=== PATIENT | female | born 1935 | race Caucasian/White ===

== ENCOUNTER 2019-11-05 09:13 | Emergency (ER) | payer MEDICARE, OTHER, SELFPAY ==
--- NOTE | ~2019-11-05 | CT_ITS ---
EXAMINATION: CT abdomen pelvis w con DATE: 11/05/2019 10:38 INDICATION: Abdominal pain. TECHNIQUE: Computed tomography (CT) of the abdomen and pelvis was performed with 100 mL Omnipaque 350 intravenous contrast. Automated exposure control and iterative reconstruction technique were employe d. The dose-length product was 158.80 mGy-cm. COMPARISON: None. FINDINGS: The visualized portions of the lung bases demonstrate mucous plugging in right lower lobe. There are airspace and groundglass opacities in basilar right lower lobe, consistent with atelectasis versus pneumonia. There is mild atelectasis in left lower lobe. No pleural effusion. The liver, gall bladder, spleen, and adrenal glands are normal. There is a 4 mm cystic lesion in the body of the panc reas, likely benign. Right kidney is normal. There are cysts in left kidney measuring up to 3 mm. The re is diverticulosis of the colon without evidence of diverticulitis. 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 There are no pathologically enlarged lymph nodes. There is no free intrape ritoneal fluid. There is mild lumbar spondylosis. IMPRESSION: 1. Mucous plugging in right lung lower lobe with airspace and groundglass opacities in basilar right lower lobe, consistent with atelectasis versus pneumonia. Reviewed, dictated and finalized at location A. IMPRESSION: 1. Mucous plugging in right lung lower lobe with airspace and groundglass opaci ties in basilar right lower lobe, consistent with atelectasis versus pneumonia.
[2019-11-05 09:13] VITALS: BP 127/54; PULSE 67; RESP 18; TEMP 36.8; O2SAT 96
[2019-11-05 09:55] LABS: Basophils Absolute Auto 0.1 K/mm3 (0.0-0.1); Basophils Percent Auto 0.8 % (0.2-1.2); Eosinophils Absolute Auto 0.1 K/mm3 (0-0.3); Eosinophils Percent Auto 1.6 % (0-4.4); Hematocrit 35.9 % (42.0-52.0); Hemoglobin 11.6 g/dL (14.0-18.0); Immature Granulocyte Absolute 0.03 K/mm3 (0.00-0.031); Immature Granulocyte Percent A 0.4 % (0-0.5); Lymphocytes Absolute Auto 1.19 K/mm3 (0.9-3.2); Lymphocytes Percent Auto 15.9 % (18.3-44.2); Mean Corpuscular HGB Conc 32.3 g/dl (32-36); Mean Corpuscular Hemoglobin 30.5 pg (26-34); Mean Corpuscular Volume 94.5 fl (80-100); Mean Platelet Volume 8.9 fl (7.4-10.4); Monocytes Absolute Auto 0.7 K/mm3 (0.1-0.6); Monocytes Percent Auto 8.8 % (2.6-8.5); Neutrophils Absolute Auto 5.4 K/mm3 (1.3-6.7); Neutrophils Percent Auto 72.5 % (45.5-73.1); Platelet Count Result 450 k/mm3 (150-375); Red Cell Distribution Width 13.8 % (11.5-14.5); White Blood Count 7.5 K/mm3 (4.5-10.0)
[2019-11-05] MEDS: BELLADONNA ALK/PHENOB ELIX 10 ML, MAG HYDROX/ALUMINUM HYD/SIMETH 30 ML, LIDOCAINE HCL 2... PO (10:07)
[2019-11-05 10:08] LABS: Alanine Aminotransferase 15 U/L (4-50); Albumin Level 3.5 g/dL (3.5-5.1); Alkaline Phosphatase 114 U/L (38-126); Aspartate Amino Transferase 38 U/L (17-59); Bilirubin,Total 0.4 mg/dL (0.2-1.3); Blood Urea Nitrogen 9 mg/dL (9-20); Calcium 9.1 mg/dL (8.4-10.2); Carbon Dioxide 28 mmol/L (22-30); Chloride 102 mmol/L (98-107); Estimated Glomerular Filt Rate > 60; Glucose 103 mg/dL (75-110); Lipase 76 U/L (23-300); Potassium 4.7 mmol/L (3.4-5.0); Sodium 137 mmol/L (137-145)
--- NOTE | 2019-11-05 10:23 | ED.ABDPAIN ---
HPI - Abdominal Pain General Chief Complaint: Abdominal Pain Stated Complaint: abd pain Time Seen by Provider: 11/05/19 09:23 Source: patient Mode of arrival: EMS Limitations: no limitations History of Present Illness HPI narrative: Patient presents with chief complaint of epigastric discomfort over the past 2 days. Patient is a the pain feels like a cramping. She denies any vomiting or diarrhea. Patient denies any inability to move her bowels. Patient states that she had cold-like symptoms a week ago and has been taking [place] plus for her symptoms. Patient states that her symptoms have all resolved. She reports the day before yesterday she was tested for influenza and xray for pneumonia and was told that all the testing was negative. She states she was also told she did not have coronavirus. Patient denies recent travel or known exposure. Patient has not taken anything to alleviate her abdominal discomfort. Patient any chest pain or shortness of breath. Patient denies the discomfort radiating into her back. Related Data Home Medications Medication Instructions Recorded Confirmed amlodipine 2.5 mg PO DAILY 11/05/19 levothyroxine 25 mcg PO DAILY 11/05/19 Allergies Allergy/AdvReac Type Severity Reaction Status Date / Time No Known Allergies Allergy Verified 11/05/19 09:17 Review of Systems Review of Systems: Narrative: CONSTITUTIONAL: Denies fever, chills, or sweats. EYES: Denies visual changes, redness, or discharge. ENT: Denies rhinorrhea, congestion, sore throat, or otalgia. CARDIOVASCULAR: Denies chest pain, palpitations, or edema. RESPIRATORY: Denies cough or dyspnea. GASTROINTESTINAL: Reports epigastric abdominal pain, denies nausea, vomiting, or diarrhea. GENITOURINARY: Denies dysuria or hematuria. SKIN: Denies rash or itching. MUSCULOSKELETAL: Denies back pain, joint pain, or myalgia. NEUROLOGIC: Denies headache, numbness, dizziness, or weakness. PSYCHIATRIC: Denies anxiety or depression. PMFSH Social History Social History Gender identity (if verbalized by the patient): Female Exam Narrative: Exam Narrative: GENERAL: Well-appearing, well-nourished, and in no acute distress. HEAD: Normocephalic, atraumatic. EYES: PERRLA and EOMI. ENT: Nares clear, no rhinorrhea or epistaxis. Mucous membranes moist. Oropharynx without tonsillar hypertrophy exudate or other lesions. Bilateral TMs pearly moffett nonbulging NECK: Supple. No adenopathy or masses. CHEST: Clear to auscultation. No respiratory distress. No wheezes rales or rhonchi HEART: Regular rate and rhythm. No murmur heard. Normal peripheral pulses. ABDOMEN: Soft, tender with palpation of epigastric area, nondistended, normal active bowel sounds. SKIN: Warm, dry, no rash. NEURO: No focal deficits. Alert and oriented x3. PSYCH: Normal mood and affect. Course Course Emergency Course: Patient requesting food to eat. Informed patient that we need to wait until her results to return before eating. It is a good sign that the patient has interest in eat, despite her concern for her abdominal pain. Vital Signs Vital signs: Vital Signs Temperature 98.3 F 11/05/19 09:13 Pulse Rate 67 11/05/19 09:13 Respiratory Rate 18 11/05/19 09:13 Blood Pressure 127/54 L 11/05/19 09:13 Pulse Oximetry 96 11/05/19 09:13 Temperature 98.3 F 11/05/19 09:13 Pulse Rate 67 11/05/19 09:13 Respiratory Rate 18 11/05/19 09:13 Blood Pressure 127/54 L 11/05/19 09:13 Pulse Oximetry 96 11/05/19 09:13 MDM - Abdominal Pain MDM Narrative Medical decision making narrative: Patient's blood work and CT scan are negative. Patient is instructed to stop use of [place] plus as it may be causing irritation to her stomach lining. Instructed patient to follow-up with her primary care in 2 to 3 days for reevaluation. Patient denies any nausea. Patient denies any a.m. has not had any vomiting or diarrhea since she has been in the emergency depa
--- NOTE | 2019-11-05 10:28 | ECG_ITS ---
Measurements Intervals [place] Rate: 70 P: 54 NH: 176 QRS: 19 QRSD: 68 T: 60 QT: 363 QTc: 392 Interpretive Statements SINUS RHYTHM CANNOT RULE OUT SEPTAL INFARCT, AGE INDETERMINATE BORDERLINE T WAVE ABNORMALITY- DIFFUSE LEADS BASELINE ARTIFACT- I, II, III, AVR, AVL ABNORMAL ECG Electronically Signed On 11-05-2019 11:45:02 CDT by Isidro Kearns D.O.
[2019-11-05 10:33] LABS: Add Urine Microscopic? YES; Appearance Urine Clear (Clear); Bilirubin Urine Negative (Negative); Blood Urine Negative (Negative); Color Urine Yellow (Yellow); Glucose Urine UA Negative (Negative); Ketones Urine Negative (Negative); Leukocyte Esterase Ur Trace LEU/UL (Negative); Nitrate Urine Negative (Negative); Protein Urine Negative (Negative); Specific Grav Ur 1.015 (1.001-1.035); Urobilinogen Urine 0.2 mg/dL (<2.0)
[2019-11-05 10:41] LABS: Bacteria Urine Trace /hpf; Mucus Urine Rare /lpf; RBC Urine 0-2 /hpf (0-2); Squamous Epithelial Cell Urine Many /hpf (Few); Transitional Epi Cells Urine Rare /hpf (None Seen)
[2019-11-05 11:59] VITALS: BP 136/54; PULSE 73; RESP 19; O2SAT 98
== END 2019-11-05 12:01 | disposition home or self-care (01) ==
PROVIDERS: Emergency Provider Emergency Medicine
DX: R10.13 Epigastric pain (principal); R94.31 Abnormal electrocardiogram [ECG] [EKG]; R91.8 Other nonspecific abnormal finding of lung field
CPT/HCPCS: 36415; 74177; 80053; 81001; 83690; 85025; 93005; 99284; A9270; Q9967

== ENCOUNTER 2020-02-25 06:20 | Observation (INO) | payer MEDICARE, OTHER, SELFPAY ==
[2020-02-25] VITALS (20 sets, daily range): BP systolic 101–128; BP diastolic 46–69; PULSE 45–67; RESP 12–18; TEMP 36–36.7; O2SAT 93–100; BMI 18.4
--- NOTE | ~2020-02-25 | CT_ITS ---
EXAMINATION: CT cervical spine wo con DATE: 02/25/2020 06:52 INDICATION: Head injury post fall TECHNIQUE: Computed tomography (CT) of the cervical spine was performed without intravenous contrast. Automated exposure control and iterative reconstruction technique were employed. The dose-length pro duct was 101.39 mGy-cm. COMPARISON: None FINDINGS: Alignment is normal. Diffuse osteopenia. Chronic appearing mild vertebral body height loss at C4 and C5. No acute fracture. Moderate disc height loss at C4-C5, C5-C6 and C6-C7. Mild disc height loss at the remaining cervical levels as well as at T2-T3. There is severe uncovertebral osteoarthritis along with disc osteophyte complexes at multiple levels resulting in probable mild to moderate central can al stenosis most prominent at C4-C5 and C5-C6 and moderate neural foraminal stenosis on both the left and right at C3-C4 through C7-T1. Severe facet osteoarthritis on the left at C3-C4 and mild to moder ate the remainder of the cervical spine on both the left and right. Cervical soft tissues are unremar kable. No parenchymal scarring with calcified plaques at both apices of the lungs. IMPRESSION: 1. Osteopenia with chronic mild vertebral body height loss at C4 and C5. No acute osseous abnormality . 2. Moderate cervical spondylosis. Reviewed, dictated and finalized at location A. IMPRESSION: 1. Osteopenia with chronic mild vertebral body height loss at C4 and C5. No acu te osseous abnormality. 2. Moderate cervical spondylosis.
--- NOTE | ~2020-02-25 | XR_ITS ---
EXAMINATION: XR shoulder LT min 2V, XR humerus LT DATE: 02/25/2020 07:10 INDICATION: Left shoulder and arm pain post fall TECHNIQUE: 1. AP internally and externally rotated, AP oblique externally rotated, axillary and transscapular Y views of the affected shoulder were obtained. 2. AP and lateral views of the left humerus were obtained. COMPARISON: None FINDINGS: Diffuse osteopenia which decreases sensitivity for nondisplaced fracture. Minimally displaced likely intra-articular fracture at the lateral head of the left clavicle. There appears to be a step-off rafael ng the anterior cortex of the ulna just distal to the coronoid process is also suspicious for a minim ally displaced impaction fracture. Alignment of the bones is otherwise normal. Mild osteoarthritis at the left shoulder and elbow. Peripheral IV at the left antecubital fossa. IMPRESSION: 1. Minimally displaced intra-articular fracture at the lateral head of the left clavicle. 2. Suspicion for minimally displaced fracture at the proximal left ulna. Recommend dedicated left elb ow radiographs for more definitive determination. Reviewed, dictated and finalized at location A. IMPRESSION: 1. Minimally displaced intra-articular fracture at the lateral head of the left clavicle. 2. Suspicion for minimally displaced fracture at the proximal left ulna. Recomm end dedicated left elbow radiographs for more definitive determination.
--- NOTE | ~2020-02-25 | XR_ITS ---
EXAMINATION: XR chest 2V DATE: 02/25/2020 07:10 INDICATION: Fall with shoulder pain TECHNIQUE: frontal view of the chest was obtained. COMPARISON: Chest radiograph dated 08/20/2011 FINDINGS: Biapical pleural-parenchymal scarring. Hyperexpansion of lungs with new flattening of the diaphragm a nd blunting at the costo phrenic angles consistent with small bilateral pleural effusions and associa prakash basilar atelectasis. No pneumothorax. Borderline heart size accounting for AP technique. Atherosc lerotic aorta. Osteopenia. IMPRESSION: 1. Small bilateral pleural effusions with basilar atelectasis. 2. Hyperexpansion of lungs which could be related to age or COPD. Reviewed, dictated and finalized at location A.
--- NOTE | ~2020-02-25 | CT_ITS ---
EXAMINATION: CT brain wo con DATE: 02/25/2020 06:52 INDICATION: Fall with head injury TECHNIQUE: Computed tomography (CT) of the head was performed without intravenous contrast. Sagittal and coronal reconstructions were performed. The mA was adjusted according to patient size. Iterative reconstruction technique was employed. The dose-length product was 605.33 mGy-cm. COMPARISON: None FINDINGS: Left frontal scalp hematoma. No fracture. No acute intracranial hemorrhage, acute infarction or abnor mal extra axial fluid collection. There is moderate scattered white matter hypoattenuation consistent with chronic small vessel ischemic disease. Ventricles are normal and symmetric. No mass/mass effect . Intracranial calcified cerebral atherosclerosis is noted. The orbits, paranasal sinuses and mastoid air cells are normal. IMPRESSION: 1. No fracture or acute intracranial process. 2. Moderate scattered white matter hypoattenuation consistent with chronic small vessel ischemic dise ase. Reviewed, dictated and finalized at location A. IMPRESSION: 1. No fracture or acute intracranial process. 2. Moderate scattered white matter hypoattenuation consistent with chronic smal l vessel ischemic disease.
--- NOTE | ~2020-02-25 | XR_ITS ---
EXAMINATION: XR elbow LT min 3V DATE: 02/25/2020 08:09 INDICATION: Fall with left arm injury and abnormal appearance to the proximal ulna on prior radiograp hs. TECHNIQUE: Anteroposterior, two oblique and lateral views of the left elbow were obtained. COMPARISON: None. FINDINGS: Alignment is normal. Osteopenia. The cortical irregularity along the anterior margin of the proximal ulna has a chronic appearance with no linear lucency or discontinuous or sharply angulated cortex to suggest acute fracture. No fracture or joint effusion. Mild osteoarthritis at the left elbow. Periphe ral IV at the left antecubital fossa. Soft tissues are unremarkable. IMPRESSION: 1. No acute osseous abnormality. The irregular cortical contour previously noted at the proximal ulna has a chronic appearance. Reviewed, dictated and finalized at location A. IMPRESSION: 1. No acute osseous abnormality. The irregular cortical contour previously note d at the proximal ulna has a chronic appearance.
--- NOTE | 2020-02-25 06:20 | ED.FALL ---
HPI - Fall General Chief Complaint: Fall <Orly Tony MD - Last Filed: 02/25/20 07:34> Stated Complaint: fall <Orly Tony MD - Last Filed: 02/25/20 07:34> Time Seen by Provider: 02/25/20 08:35 <Orly Tony MD - Last Filed: 02/25/20 07:34> Source: patient and EMS <Orly Tony MD - Last Filed: 02/25/20 07:34> Mode of arrival: EMS <Orly Tony MD - Last Filed: 02/25/20 07:34> Limitations: no limitations <Orly Tony MD - Last Filed: 02/25/20 07:34> History of Present Illness HPI Narrative: Patient is an 84-year-old female who presents for evaluation of a ground-level fall. Patient states that she was getting up from bed when she suddenly began to feel dizzy, fell and hit her head on the side of a stair. Patient denies loss of consciousness. She reports headache pain and left-sided shoulder pain. She denies hip pain, knee pain or ankle pain. No vision changes, nausea or vomiting. Headache is dull, aching in nature, no radiation to the neck. <Orly Tony MD - Last Filed: 02/25/20 07:34> Related Data Home Medications: Home Medications Medication Instructions Recorded Confirmed amlodipine 2.5 mg PO DAILY 11/05/19 02/25/20 levothyroxine 25 mcg PO DAILY 02/25/20 02/25/20 <Orly Tony MD - Last Filed: 02/25/20 07:34> Allergies/Adverse Reactions: Allergies Allergy/AdvReac Type Severity Reaction Status Date / Time No Known Allergies Allergy Verified 02/25/20 06:41 <Orly Tony MD - Last Filed: 02/25/20 07:34> Review of Systems Review of Systems: Narrative: CONSTITUTIONAL: Denies fever CARDIOVASCULAR: Denies chest pain RESPIRATORY: Denies cough or dyspnea. GASTROINTESTINAL: Denies abdominal pain SKIN: Denies rash MUSCULOSKELETAL: Denies back pain NEUROLOGIC: Reports headache <Orly Tony MD - Last Filed: 02/25/20 07:34> [facility] Past Medical History Medical History: Medical History (Updated 02/25/20 @ 18:15 by Roxanna Turk MD) Hypertension Hypothyroid <Orly Tony MD - Last Filed: 02/25/20 07:34> Social History Social History: Social History (System 11/19/19 @ 16:18 by Radha Shah) Years smoked: 60 Smoking status: Current every day smoker Tobacco type: cigarettes Alcohol intake: former Substance use type: does not use Gender identity (if verbalized by the patient): Female Spiritual care concerns: No <Orly Tony MD - Last Filed: 02/25/20 07:34> Exam Narrative: Exam Narrative: GENERAL: Awake, alert, conversant HEAD: Left sided forehead hematoma, non-boggy, no palpable depression EYES: PERRLA and EOMI. ENT: Nares clear, no rhinorrhea or epistaxis. Mucous membranes moist. NECK: Supple. Midline cervical spinal tenderness. CHEST: No respiratory distress, breathing even and non labored HEART: Regular rate, sinus rhythm ABDOMEN:Non distended, non tender Pelvis: Stable to anterior lateral compression, no limb length discrepancy, no pain with internal or external rotation of the bilateral lower extremities EXTREMITIES: Decreased range of motion in the left shoulder, mild ecchymosis, no deformity or squaring off of the shoulder. Intact sensation median, ulnar, radial nerve distribution. Full flexion and extension of the left elbow and left wrist without pain or limitation. Radial pulses 2+. SKIN: Warm, dry, no rash. NEURO:No focal deficits. Alert and oriented x3 <Orly Tony MD - Last Filed: 02/25/20 07:34> Course Reevaluation(s) Reevaluation #1: Patient states this morning she got off the couch and she fell and hit walk due to dizziness. In the ER , we attempted to ambulated and she was unable due to severe dizziness. I discussed that she will be admitted for further evaluation of her dizziness. <Roxanna Turk MD - Last Filed: 02/25/20 18:15> Date: 02/25/20 <Roxanna Turk MD - Last Filed: 02/25/20 18:15> Time:
[2020-02-25] MEDS: SODIUM CHLORIDE 0.9% IV 1,000 ML 999 ML IV CONT (06:34)
[2020-02-25] MEDS: ONDANSETRON INJ 4 MG/2 ML VIAL IV PUSH (06:36)
[2020-02-25] MEDS: MORPHINE SULFATE 4 MG/ML INJ IV PUSH (06:36)
[2020-02-25 06:37] LABS: Basophils Absolute Auto 0.1 K/mm3 (0.0-0.1); Basophils Percent Auto 1.4 % (0.2-1.2); Eosinophils Absolute Auto 0.2 K/mm3 (0-0.3); Eosinophils Percent Auto 2.8 % (0-4.4); Hematocrit 35.2 % (37.0-47.0); Hemoglobin 12.1 g/dL (12.0-15.0); Immature Granulocyte Absolute 0.06 K/mm3 (0.00-0.031); Immature Granulocyte Percent A 1.1 % (0-0.5); Lymphocytes Absolute Auto 1.77 K/mm3 (0.9-3.2); Lymphocytes Percent Auto 31.4 % (18.3-44.2); Mean Corpuscular HGB Conc 34.4 g/dl (32-36); Mean Corpuscular Volume 95.9 fl (80-100); Mean Platelet Volume 9.1 fl (7.4-10.4); Monocytes Absolute Auto 0.5 K/mm3 (0.1-0.6); Monocytes Percent Auto 8.5 % (2.6-8.5); Neutrophils Absolute Auto 3.1 K/mm3 (1.3-6.7); Neutrophils Percent Auto 54.8 % (45.5-73.1); Platelet Count Result 185 k/mm3 (150-375); Red Blood Count 3.67 M/mm3 (4.2-5.4); Red Cell Distribution Width 15.4 % (11.5-14.5); White Blood Count 5.6 K/mm3 (4.5-10.0)
[2020-02-25 06:46] LABS: INR 1.1; Prothrombin Time 13.5 Seconds (11.1-14.7)
[2020-02-25 06:47] LABS: Partial Thromboplastin Time 38.2 SECONDS (22.3-36.8)
[2020-02-25 06:49] LABS: Blood Urea Nitrogen 14 mg/dL (7-17); Calcium 8.6 mg/dL (8.4-10.2); Carbon Dioxide 23 mmol/L (22-30); Chloride 108 mmol/L (98-107); Estimated CRCL calculation 23 ml/min; Estimated Glomerular Filt Rate 53; Glucose 107 mg/dL (65-105); Potassium 3.7 mmol/L (3.4-5.0); Sodium 137 mmol/L (137-145)
--- NOTE | 2020-02-25 09:40 | PC.NURSE ---
attempted to ambulate pt. pt c/o severe dizziness. will take a step then reach out arm to grab nearest object to steady herself. pt stating blayne im not weak like this .
[2020-02-25] MEDS: MECLIZINE HCL 25 MG TABLET PO (09:56)
[2020-02-25] MEDS: SODIUM CHLORIDE 0.9% IV 500 ML 999 ML IV CONT (09:57)
--- NOTE | 2020-02-25 10:49 | ECG_ITS ---
Measurements Intervals [place] Rate: 56 P: 67 HI: 227 QRS: -14 QRSD: 72 T: 60 QT: 411 QTc: 397 Interpretive Statements SINUS BRADYCARDIA WITH FIRST DEGREE AV BLOCK LOW QRS VOLTAGE- DIFFUSE LEADS BORDERLINE T WAVE ABNORMALITY- DIFFUSE LEADS BASELINE WANDER- AVR, AVL, AVF ABNORMAL ECG Electronically Signed On 02-25-2020 12:09:50 CDT by Isidro Kearns D.O.
--- NOTE | 2020-02-25 12:55 | PC.NURSE ---
This patient, Kayode Arroyo, was admitted to Medical Room 346-01. Patient/family oriented to hospital policies and general routines including ID bracelet, bed and alarms, visiting hours, pain management, procedures, bathroom and other care routines, personal items, smoking policy, room service/diet, and visiting hours. Valuables list has been completed. Information on how to activate the Rapid Response Team has been discussed. Patient/Family are encouraged to report perceived risks to care and to ask questions if they do not understand what they are told or what they should do.
--- NOTE | 2020-02-25 20:57 | PM.IMHP ---
H&P: HPI History of Present Illness Chief complaint: dizziness/left clavicle fracture Narrative: Kayode Arroyo is a 84 year old female the patient stated that she has been feeling dizzy over the last couple days. She presented to the emergency room after she sustained a ground level fall. The patient stated that she felt dizzy she felt like maybe she got up too fast and she fell over and hit her head on the wall. I asked her about the stair step and she stated that she did not hit her head on the stairs but it was the wall rather than the steps. She denied any loss of consciousness. The patient was complaining of some left shoulder pain and has a large hematoma to left side of her face. The patient denied any nausea or vomiting. She did complain of a headache and left shoulder pain. Patient's heart rate has been in the 40s as well. The patient stated she has been feeling dizzy for the last couple days. Her EKG was read as heart rate in the 70s. Sinus rhythm cannot rule out septic infarction age indeterminate borderline T-wave abnormality diffuse leads baseline artifact 1-3 AVR and aVL. Was read as no fracture or acute intracranial process. Moderate scattered white matter hypoattenuation consistent with chronic small-vessel ischemic disease. Chest x-ray was read as small bilateral pleural effusions with bibasilar atelectasis. Hyperexpansion of lungs which could be related to age or COPD. The patient tells me she has no history of COPD. X-ray was read as minimally displaced intra-articular fracture of the lateral head of the left clavicle. Suspicion for minimally displaced fracture of the proximal left ulna. Orthopedics has been consulted. Tylenol and placed in a left arm sling. She was also given IV fluids and morphine and Antivert. Patient is being admitted to medical floor for bradycardia dizziness and left clavicle fracture possible left ulnar fracture. Date of service 02/25/2020 Review of Systems Review of Systems: All systems reviewed & are unremarkable except as noted in HPI and below Constitutional: Constitutional: Reports as per HPI and Reports no additional constitutional complaints Eyes: Eyes: Reports as per HPI and Reports no additional eye complaints ENT: Reports system reviewed and no additional complaints, except as documented and Reports Normal hearing present Cardiovascular: Cardiovascular: Reports no additional cardiovascular complaints Respiratory: Respiratory: Reports no additional respiratory complaints and Reports no additional respiratory complaints Gastrointestinal: Gastrointestinal: Reports as per HPI and Reports no additional gastrointestinal complaints Musculoskeletal: Musculoskeletal: Reports no additional musculoskeletal complaints Integumentary/Breasts: Skin/Breast: Reports system reviewed and no additional complaints, except as docu and Reports as per HPI Neurologic: Reports system reviewed and no additional complaints, except as documented, Reports as per HPI and Reports Normal hearing present Psychiatric: Psychiatric: Reports no additional psychiatric complaints and Reports as per HPI Endocrine: Endocrine: Reports no additional endocrine complaints Hematologic/Lymphatic: Hematologic/Lymphatic: Reports no additional hematologic/lymphatic complaints Allergic/Immunologic: Allergic/Immunologic: Reports no additional allergic/immunologic complaints [facility] Past Medical History Medical History (Updated 02/25/20 @ 21:13 by Ritika Varela NP) Hypertension Hypothyroid Surgical History Surgical History History of appendectomy Family History Family History Mother due to natural causes Father due to natural causes Social History Social History (Updated 02/25/20 @ 21:08 by Ritika Varela NP) Social History: The patient tells me that she lives home alone. She is
[2020-02-25] MEDS: MECLIZINE HCL 6.25 MG TABLET PO (22:47)
[2020-02-25 23:14] LABS: Add Urine Microscopic? YES; Appearance Urine Clear (Clear); Bilirubin Urine Negative (Negative); Blood Urine Negative (Negative); Color Urine Straw (Yellow); Glucose Urine UA Negative (Negative); Ketones Urine Trace mg/dL (Negative); Leukocyte Esterase Ur Negative LEU/UL (NEGATIVE); Mucus Urine Rare /lpf; Nitrate Urine Negative (Negative); Protein Urine Negative (Negative); RBC Urine 0-2 /hpf (0-2); Specific Grav Ur 1.018 (1.001-1.035); Urobilinogen Urine Negative mg/dL (<2.0)
[2020-02-26] VITALS (15 sets, daily range): BP systolic 103–133; BP diastolic 44–59; PULSE 44–79; RESP 12–16; TEMP 36.2–36.6; O2SAT 95–97; BMI 18.4
[2020-02-26] MEDS: LEVOTHYROXINE SODIUM 25 MCG TABLET PO (05:58)
[2020-02-26 06:37] LABS: Basophils Absolute Auto 0.1 K/mm3 (0.0-0.1); Basophils Percent Auto 1.1 % (0.2-1.2); Eosinophils Absolute Auto 0.1 K/mm3 (0-0.3); Eosinophils Percent Auto 2.1 % (0-4.4); Hematocrit 31.3 % (37.0-47.0); Hemoglobin 10.8 g/dL (12.0-15.0); Immature Granulocyte Absolute 0.03 K/mm3 (0.00-0.031); Immature Granulocyte Percent A 0.5 % (0-0.5); Lymphocytes Absolute Auto 1.55 K/mm3 (0.9-3.2); Lymphocytes Percent Auto 27.2 % (18.3-44.2); Mean Corpuscular HGB Conc 34.5 g/dl (32-36); Mean Corpuscular Hemoglobin 32.6 pg (26-34); Mean Corpuscular Volume 94.6 fl (80-100); Mean Platelet Volume 9.6 fl (7.4-10.4); Monocytes Absolute Auto 0.5 K/mm3 (0.1-0.6); Monocytes Percent Auto 9.3 % (2.6-8.5); Neutrophils Absolute Auto 3.4 K/mm3 (1.3-6.7); Neutrophils Percent Auto 59.8 % (45.5-73.1); Platelet Count Result 181 k/mm3 (150-375); Red Blood Count 3.31 M/mm3 (4.2-5.4); Red Cell Distribution Width 15.2 % (11.5-14.5); White Blood Count 5.7 K/mm3 (4.5-10.0)
[2020-02-26 06:51] LABS: Alanine Aminotransferase 12 U/L (4-35); Albumin Level 3.6 g/dL (3.5-5.1); Alkaline Phosphatase 68 U/L (38-126); Aspartate Amino Transferase 51 U/L (14-36); Bilirubin,Total 0.6 mg/dL (0.2-1.3); Blood Urea Nitrogen 10 mg/dL (7-17); Calcium 8.6 mg/dL (8.4-10.2); Carbon Dioxide 26 mmol/L (22-30); Chloride 107 mmol/L (98-107); Estimated CRCL calculation 31 ml/min; Estimated Glomerular Filt Rate 60; Glucose 76 mg/dL (65-105); Magnesium 1.9 mg/dL (1.6-2.3); Sodium 136 mmol/L (137-145)
[2020-02-26 07:50] LABS: Thyroid Stimulating Hormone Reflex > 100.000 uIU/mL (0.465-4.68)
[2020-02-26 08:18] LABS: Free T4 Free Thyroxine Reflex < 0.07 ng/dL (0.78-2.19)
[2020-02-26] MEDS: MECLIZINE HCL 6.25 MG TABLET PO ×3 (09:13→16:54)
--- NOTE | 2020-02-26 12:33 | PM.IMPN ---
Progress Note: A&P Assessment and Plan (1) Fracture of clavicle: Qualifiers: Clavicle location: unspecified part of clavicle Encounter type: initial encounter Fracture alignment: displaced Fracture type: closed Laterality: left Qualified Code(s): S42.002A - Fracture of unspecified part of left clavicle, initial encounter for closed fracture Code(s): S42.009A - Fracture of unspecified part of unspecified clavicle, initial encounter for closed fracture Status: Acute Assessment and Plan: Patient presents after a fall at home; XR shows minimally displaced intra-articular fracture of lateral head of left clavicle. Orthopedic surgery was consulted - appreciate recommendations. L arm in sling. If plans for conservative therapy, may be able to discharge tomorrow. Continue supportive care with sling and Tylenol. Incentive spirometry. (2) Hypothyroid: Qualifiers: Hypothyroidism type: unspecified Qualified Code(s): E03.9 - Hypothyroidism, unspecified Code(s): E03.9 - Hypothyroidism, unspecified Status: Chronic Assessment and Plan: TSH > 100. She admits she has not taken her levothyroxine in a couple months . Discussed the importance of taking her medications as prescribed. Will restart her levothyroxine and increase dose to 50 mcg daily. Will need follow up with PCP. Untreated hypothyroidism is likely contributing to bradycardia and dizziness. (3) Bradycardia: Code(s): R00.1 - Bradycardia, unspecified Status: Acute Assessment and Plan: See above. Untreated hypothyroidism is the most likely cause. Will monitor. (4) Dizziness: Code(s): R42 - Dizziness and giddiness Status: Acute Assessment and Plan: CT brain after fall with no acute findings. Bradycardia may have contributed. Hopeful correcting the thyroid levels will help. Continue meclizine. She reports feeling better today. (5) Hypertension: Qualifiers: Hypertension type: essential hypertension Qualified Code(s): I10 - Essential (primary) hypertension Code(s): I10 - Essential (primary) hypertension Status: Chronic Assessment and Plan: With some blood pressures on the softer side, her home low-dose Norvasc was held. Last 128/55. Will monitor BP and adjust treatment as needed. Subjective Date/time seen: 02/26/20 12:15 Interval history: Ms. Arroyo is an 84yo F admitted with dizziness, left clavicular fracture after a fall at home. She reports feeling okay today, very sore. Her left shoulder is bothering her most. She denies chest pain or shortness of breath. She is tolerating oral intake without nausea or vomiting. Review of Systems Review of Systems: Narrative: Twelve systems were reviewed with pertinent positives and negatives as per HPI. Exam Narrative: Exam Narrative: General: Female sitting up in bedside chair in no acute distress. HEENT: Left forehead ecchymosis and soft tissue swelling, PERRL, EOMI, oral mucosa moist. Cardiovascular: Rate is bradycardic but rhythm is regular. Telemetry review shows sinus bradycardia HR 68 at time of my encounter. Respiratory: Lungs clear to auscultation all hernandez. Non-labored breathing. Abdomen: Soft, non-tender, non-distended, bowel sounds present. Extremities: Peripheral pulses intact. Left upper extremity is neurovascularly intact. L arm in sling. Neuro: No focal neurological deficits. Speech is clear. Objective Data Vital Signs Vital Signs: Last Vital Signs Temp 97.5 F L 02/26/20 14:00 Pulse 58 L 02/26/20 16:00 Resp 16 02/26/20 14:00 BP 128/55 L 02/26/20 14:39 Pulse Ox 97 02/26/20 14:00 Intake/Output Intake/Output: Intake & Output 02/23/20 02/24/20 02/25/20 02/26/20 23:59 23:59 23:59 23:59 Intake Total 1765 290 Out
--- NOTE | 2020-02-26 16:39 | PM.CNOR ---
Assessment and Plan Assessment and plan (1) Fx clavicle, acrom end-closed: Code(s): S42.033A - Displaced fracture of lateral end of unspecified clavicle, initial encounter for closed fracture Status: Acute Assessment and Plan: Nondisplaced fracture of the distal in the clavicle. May be treated conservatively. Sling for comfort. May remove intermittently comfort, hygiene, and exercise. Elbow wrist and hand exercise encouraged. Gentle shoulder motion as tolerated. No lifting over shoulder height. No pushing or pulling. Follow-up x-ray in 4 weeks. Risk of delayed union discussed. Nonunion less likely with this nondisplaced fracture. History of Present Illness HPI Consult date: 02/25/20 Chief complaint: dizziness/left clavicle fracture Narrative: Complains of left shoulder pain. Lateral and superior. Began after a fall. Pain is severe. Relieved with sling. No numbness or associated symptoms. Review of Systems Review of Systems: All systems reviewed & are unremarkable except as noted in HPI and below (hpi) Constitutional: Constitutional: Reports fatigue Comments: dizzyness PMFSH Past Medical History Medical History Hypertension Hypothyroid Surgical History Surgical History History of appendectomy Family History Family History Mother due to natural causes Father due to natural causes Social History Social History Social History: The patient tells me that she lives home alone. She is . She has 1 daughter who is estranged from her. 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 Who lives home alone in an apartment by herself. She states that she is down to 5 or 6 cigarettes a day. She does not use marijuana illicit drugs or alcohol. Years smoked: 60 Smoking status: Current every day smoker Tobacco type: cigarettes Alcohol intake: former Substance use type: does not use Gender identity (if verbalized by the patient): Female Spiritual care concerns: No Meds Home Medications and Allergies Home Medications Medication Instructions Recorded Confirmed Type amlodipine 2.5 mg PO DAILY 11/05/19 02/25/20 History levothyroxine 25 mcg PO DAILY 02/25/20 02/25/20 History Allergies Allergy/AdvReac Type Severity Reaction Status Date / Time No Known Allergies Allergy Verified 02/25/20 06:41 Vital Signs Vital Signs - 24 hr 02/25/20 20:00 02/25/20 20:21 02/26/20 00:00 Temperature 36.3 C L Pulse Rate 45 L 50 L 44 L Respiratory Rate 12 Blood Pressure 118/49 L Pulse Oximetry 97 02/26/20 01:09 02/26/20 01:10 02/26/20 01:11 Temperature 36.6 C Pulse Rate 52 L Respiratory Rate 14 Blood Pressure 116/44 L 125/59 L 127/54 L Pulse Oximetry 96 02/26/20 04:23 02/26/20 04:45 02/26/20 08:00 Temperature 36.2 C L Pulse Rate 48 L 55 L 55 L Respiratory Rate 12 Blood Pressure 103/50 L 120/52 L Pulse Oximetry 95 02/26/20 12:00 02/26/20 14:00 02/26/20 14:39 Temperature 36.4 C L Pulse Rate 68 58 L Respiratory Rate 16 Blood Pressure 122/48 L 128/55 L Pulse Oximetry 97 02/26/20 16:00 Temperature Pulse Rate 58 L Respiratory Rate Blood Pressure Pulse Oximetry Exam Const: General: uncomfortable HENMT: Other: Ecchymosis at the temporal and frontal area of the skull and face. Eyes: General: appearance normal, both eyes and all related structures Neck: Neck: supple Extrem: Other: Pleasant. Uncomfortable. Alert oriented x3. Left shoulder number will deformity. Exquisite tenderness at the distal clavicle. Gentle glenohumeral motion well tolerated. No crepitus or deformity. The foot muscle intact.
[2020-02-27] VITALS (11 sets, daily range): BP systolic 108–142; BP diastolic 47–68; PULSE 52–73; RESP 12–16; TEMP 36.1–36.8; O2SAT 92–98
[2020-02-27] MEDS: LEVOTHYROXINE SODIUM 50 MCG TABLET PO (06:09)
[2020-02-27] MEDS: MECLIZINE HCL 6.25 MG TABLET PO ×3 (08:18→16:58)
--- NOTE | 2020-02-27 13:00 | PM.IMPN ---
Subjective Date/time seen: 02/27/20 1215 Objective Data Vital Signs Vital Signs: Vital Signs - 24 hr 02/26/20 14:00 02/26/20 14:39 02/26/20 16:00 Temperature 97.5 F L Pulse Rate 58 L 58 L Respiratory Rate 16 Blood Pressure 122/48 L 128/55 L Pulse Oximetry 97 02/26/20 20:00 02/26/20 22:18 02/26/20 22:23 Temperature 97.3 F L Pulse Rate 53 L 58 L 65 Respiratory Rate 14 Blood Pressure 132/59 L 120/54 L Pulse Oximetry 95 97 02/26/20 22:24 02/27/20 00:15 02/27/20 04:12 Temperature Pulse Rate 79 53 L 52 L Respiratory Rate Blood Pressure 133/57 L Pulse Oximetry 96 02/27/20 05:36 02/27/20 08:00 02/27/20 09:15 Temperature 97.2 F L Pulse Rate 55 L 73 Respiratory Rate 16 Blood Pressure 118/51 L 142/63 H Pulse Oximetry 96 02/27/20 12:00 Temperature Pulse Rate 66 Respiratory Rate Blood Pressure Pulse Oximetry Intake/Output Intake/Output: Intake & Output 02/24/20 02/25/20 02/26/20 02/27/20 23:59 23:59 23:59 23:59 Intake Total 1765 610 580 Output Total 200 700 Balance 1565 -90 580 Meds/Results Medications: Active Medications Generic Name Dose Route Start Last Admin Trade Name Freq PRN Reason Stop Dose Admin Acetaminophen 1,000 mg 02/26/20 16:38 Tylenol Tablet PO Q6H PRN mild Pain or Fever Hydrocodone Bitart/Acetaminophen 1 tab 02/25/20 20:49 [place] 5-325 Mg PO Q4H PRN Pain Rated 4-6 Amlodipine Besylate 2.5 mg 02/26/20 09:00 Norvasc PO DAILY MIREYA Levalbuterol HCl 2 puff 02/25/20 21:03 Xopenex Hfa INHALATION Q6HRT PRN Shortness Of Breath Levothyroxine Sodium 50 mcg 02/27/20 06:30 02/27/20 06:09 Synthroid PO 50 mcg DAILY@0630 MIREYA Administration Meclizine HCl 6.25 mg 02/25/20 21:10 07/04/20 12:20 Antivert PO 6.25 mg TID MIREYA Administration Radiology Results: ITS Impressions Head CT 02/25/20 07:13 IMPRESSION: 1. No fracture or acute intracranial process. 2. Moderate scattered white matter hypoattenuation consistent with chronic small vessel ischemic disease. Chest X-Ray 02/25/20 07:17 IMPRESSION: 1. Small bilateral pleural effusions with basilar atelectasis. 2. Hyperexpansion of lungs which could be related to age or COPD. Humerus X-Ray 02/25/20 07:20 IMPRESSION: 1. Minimally displaced intra-articular fracture at the lateral head of the left clavicle. 2. Suspicion for minimally displaced fracture at the proximal left ulna. Recommend dedicated left elbow radiographs for more definitive determination. Shoulder X-Ray 02/25/20 07:20 IMPRESSION: 1. Minimally displaced intra-articular fracture at the lateral head of the left clavicle. 2. Suspicion for minimally displaced fracture at the proximal left ulna. Recommend dedicated left elbow radiographs for more definitive determination. Cervical Spine CT 02/25/20 07:27 IMPRESSION: 1. Osteopenia with chronic mild vertebral body height loss at C4 and C5. No acute osseous abnormality. 2. Moderate cervical spondylosis. Elbow X-Ray 02/25/20 08:12 IMPRESSION: 1. No acute osseous abnormality. The irregular cortical contour previously noted at the proximal ulna has a chronic appearance. Quality VTE Prophylaxis VTE prophylaxis: mechanical ordered
--- NOTE | 2020-02-27 14:49 | PM.DS ---
DS: Admitting Diagnosis Admitting Diagnosis Admitting Diagnosis: Bradycardia, unspecified DS: Summary Time Spent with Patient Time attestation: Total time spent providing and/or coordinating discharge services: Discharge Plan Discharge Attending physician on discharge: Jerica Shoemaker Consulting providers: Deshaun Duncan Discharging Clinician: Roxi Cadet Anticipated Discharge Date/Time: 02/27/20 13:32 Patient Disposition: SNF Activity: as tolerated and other - see discharge instructions Diet: as tolerated Discharge Instructions: To be seen by custodial provider within 1 week. It is very important to continue taking your thyroid medicine as prescribed. It is felt that your dizziness and slow heart rate was a result of not taking your thyroid medication. Your blood pressure medicine, amlodipine, has not been given to you at the hospital because your blood pressure has been low. Hold off on taking this medication until you see your primary care provider in follow up. Orthopedics: Patient may remove the sling as needed for comfort. Gentle activity below shoulder height is allow. Encourage elbow wrist and hand range of motion. Call Dr Duncan's office at to make a follow up appointment for 3 to 4 weeks from now. Patient Instructions: How to Stop Smoking (GEN), Clavicle Fracture (DC), Cigarette Smoking and Your Health (GEN), How to Use a Sling (DC) Stand Alone Forms: General Discharge Information Follow-up/Referrals: Deshaun Duncan MD [Physician] - Call for Appointment (Call Dr Duncan's office to schedule a follow up appointment in 3 to 4 weeks.) Discharge Medications: New levothyroxine [Synthroid] 50 mcg Tablet 50 mcg PO DAILY@0630 30 Days Qty: 30 RF: 0 meclizine 12.5 mg tablet 12.5 mg PO TID PRN (Reason: dizziness) Qty: 20 RF: 0 Held amlodipine 2.5 mg Tablet 2.5 mg PO DAILY RF: 0 Hold Instructions: Hold until follow up with PCP. Not given in hospital due to hypotension. Discontinued levothyroxine 25 mcg Tablet 25 mcg PO DAILY RF: 0 Other Ambulatory Orders: XR clavicle LT (Routine) Timeframe: 4 Weeks Location: Determined by Patient Ordered By: Roxi Cdaet Date of admission: 02/25/20 11:59 Primary Care Provider: [facility], Admitting Provider: Shad Hills Attending physician on admission: Roxi Cadet Condition: Stable Quality VTE Prophylaxis VTE prophylaxis: mechanical ordered
--- NOTE | 2020-02-27 15:59 | PM.IMPN ---
Progress Note: A&P Assessment and Plan (1) Fracture of clavicle: Qualifiers: Clavicle location: unspecified part of clavicle Encounter type: initial encounter Fracture alignment: displaced Fracture type: closed Laterality: left Qualified Code(s): S42.002A - Fracture of unspecified part of left clavicle, initial encounter for closed fracture Code(s): S42.009A - Fracture of unspecified part of unspecified clavicle, initial encounter for closed fracture Status: Acute Assessment and Plan: Patient presents after a fall at home; XR shows minimally displaced intra-articular fracture of lateral head of left clavicle. Orthopedic surgery was consulted - appreciate recommendations. L arm in sling. Plans for conservative management. Follow up with Dr Duncan in 3 to 4 weeks. Continue supportive care with sling and Tylenol. Incentive spirometry. Discharge planning to [facility] who are not able to take the patient until tomorrow. Discharge tomorrow. (2) Hypothyroid: Qualifiers: Hypothyroidism type: unspecified Qualified Code(s): E03.9 - Hypothyroidism, unspecified Code(s): E03.9 - Hypothyroidism, unspecified Status: Chronic Assessment and Plan: TSH > 100. She admits she has not taken her levothyroxine in a couple months . Discussed the importance of taking her medications as prescribed. Will restart her levothyroxine and increase dose to 50 mcg daily. Will need follow up with PCP. Untreated hypothyroidism is likely contributing to bradycardia and dizziness. (3) Bradycardia: Code(s): R00.1 - Bradycardia, unspecified Status: Acute Assessment and Plan: See above. Untreated hypothyroidism is the most likely cause. Will monitor. (4) Dizziness: Code(s): R42 - Dizziness and giddiness Status: Acute Assessment and Plan: CT brain after fall with no acute findings. Bradycardia may have contributed. Hopeful correcting the thyroid levels will help. Continue meclizine. She reports feeling better today. (5) Hypertension: Qualifiers: Hypertension type: essential hypertension Qualified Code(s): I10 - Essential (primary) hypertension Code(s): I10 - Essential (primary) hypertension Status: Chronic Assessment and Plan: Will add back norvasc. Will monitor BP and adjust treatment as needed. Subjective Date/time seen: 02/27/20 1245 Interval history: Ms. Arroyo is an 84yo F admitted with dizziness, left clavicular fracture after a fall at home. She is feeling alright today but left shoulder pretty sore. She denies chest pain or shortness of breath. No acute issues overnight. Tolerating oral intake. Review of Systems Review of Systems: Narrative: Twelve systems were reviewed with pertinent positives and negatives as per HPI. Exam Narrative: Exam Narrative: General: Female sitting up on edge of bed in no acute distress. HEENT: Left forehead ecchymosis and soft tissue swelling, PERRL, EOMI, oral mucosa moist. Cardiovascular: Rate is bradycardic but rhythm is regular. Telemetry review shows sinus bradycardia HR 62 at time of my encounter. Respiratory: Lungs clear to auscultation all hernandez. Non-labored breathing. Abdomen: Soft, non-tender, non-distended, bowel sounds present. Extremities: Peripheral pulses intact. Left upper extremity is neurovascularly intact. L arm in sling. Neuro: No focal neurological deficits. Speech is clear. Objective Data Vital Signs Vital Signs: Last Vital Signs Temp 98.2 F 02/27/20 14:13 Pulse 70 02/27/20 14:13 Resp 12 02/27/20 14:13 BP 140/68 02/27/20 14:13 Pulse Ox 98 02/27/20 14:13 Intake/Output Intake/Output: Intake & Output 02/24/20 02/25/20 02/26/20 02/27/20 23:59 23:59 23:59 23:59 Intake Total 1324
[2020-02-28] MEDS: LEVOTHYROXINE SODIUM 50 MCG TABLET PO (05:41)
[2020-02-28 06:00] VITALS: BP 110/46; PULSE 55; RESP 14; TEMP 36.1; O2SAT 97
[2020-02-28 08:00] VITALS: BP 132/56
[2020-02-28 08:31] VITALS: BP 128/54; BP 136/62
[2020-02-28] MEDS: MECLIZINE HCL 6.25 MG TABLET PO ×2 (08:57→12:35)
[2020-02-28 09:28] VITALS: RESP 14; O2SAT 97
--- NOTE | 2020-02-28 10:17 | PM.DS ---
DS: Admitting Diagnosis Admitting Diagnosis Admitting Diagnosis: Bradycardia, unspecified DS: Discharge Diagnosis Discharge Diagnosis (1) Fracture of clavicle: Qualifiers: Clavicle location: unspecified part of clavicle Encounter type: initial encounter Fracture alignment: displaced Fracture type: closed Laterality: left Qualified Code(s): S42.002A - Fracture of unspecified part of left clavicle, initial encounter for closed fracture Code(s): S42.009A - Fracture of unspecified part of unspecified clavicle, initial encounter for closed fracture Status: Acute Assessment and Plan: Date of Service 02/28/20 Ms. Arroyo is an 84yo F with history of hypothyroidism and hypertension who presented to the ED for evaluation of left shoulder pain after a fall at home. Ms. Arroyo lives at home alone and described that she fell against a wall on her left side while she was walking to the bathroom because she felt drunk and dizzy. She denied chest pain, palpitations, or shortness of breath. Imaging on arrival demonstrated a minimally displaced left clavicle fracture of the lateral head. She was evaluated by Orthopedic surgery, Dr Duncan, and L arm was placed in a sling. Ortho recommended conservative therapy with sling x 3 to 4 weeks, repeat XR in 4 weeks and follow up in his office at that time. TSH was > 100. She admitted to not taking her levothyroxine over the last few months . She was educated on the importance of taking her medications as prescribed and it is felt that this imbalance likely contributed to bradycardia she was noted to have, and dizziness. She was restarted on a higher dose of levothyroxine at 50mcg daily and instructed on the importance of following up with PCP for TSH monitoring. She denied dizziness day of discharge. She was hemodynamically stable for discharge 02/28/20 and after working with PT/OT here was felt that she could benefit from continued therapy at [facility]. She was discharged to [facility] in stable condition with instructions to follow up with Dr Duncan. Patient presents after a fall at home; XR shows minimally displaced intra-articular fracture of lateral head of left clavicle. Orthopedic surgery was consulted - appreciate recommendations. L arm in sling. Plans for conservative management. Follow up with Dr Duncan in 3 to 4 weeks. Continue supportive care with sling and Tylenol. Incentive spirometry. Discharge SNF. (2) Hypothyroid: Qualifiers: Hypothyroidism type: unspecified Qualified Code(s): E03.9 - Hypothyroidism, unspecified Code(s): E03.9 - Hypothyroidism, unspecified Status: Chronic Assessment and Plan: TSH > 100. She admits she has not taken her levothyroxine in a couple months . Discussed the importance of taking her medications as prescribed. Will restart her levothyroxine and increase dose to 50 mcg daily. Will need follow up with PCP. Untreated hypothyroidism is likely contributing to bradycardia and dizziness. (3) Bradycardia: Code(s): R00.1 - Bradycardia, unspecified Status: Acute Assessment and Plan: See above. Untreated hypothyroidism is the most likely cause. Stable. (4) Dizziness: Code(s): R42 - Dizziness and giddiness Status: Acute Assessment and Plan: CT brain after fall with no acute findings. Bradycardia may have contributed. Hopeful correcting the thyroid levels will help. Continue meclizine. She reports feeling better today. (5) Hypertension: Qualifiers: Hypertension type: essential hypertension Qualified Code(s): I10 - Essential (primary) hypertension Code(s): I10 - Essential (primary) hypertension Status: Chronic Assessment and Plan: Low end/stable on her home Norvasc.
== END 2020-02-28 12:50 ==
LOC: ANHED 08:35 → ANH3MED 12:24
PROVIDERS: Emergency Medicine; Nurse Practitioner; Admitting Provider Internal Medicine; Emergency Provider General Practice; Visit Provider Family Medicine
DX: S42.032A Displaced fracture of lateral end of left clavicle, initial encounter for closed fracture (principal); S00.83XA Contusion of other part of head, initial encounter; W18.30XA Fall on same level, unspecified, initial encounter; R00.1 Bradycardia, unspecified; R42 Dizziness and giddiness; I10 Essential (primary) hypertension; E03.9 Hypothyroidism, unspecified; F17.210 Nicotine dependence, cigarettes, uncomplicated; Z66 Do not resuscitate; Z79.899 Other long term (current) drug therapy
CPT/HCPCS: 36415; 70450; 71046; 72125; 73030; 73060; 73080; 80048; 80053; 81001; 83735; 84439; 84443; 85025; 85610; 85730; 93005; 96361; 96365; 96366; 96375; 97161; 97165; 99285; A4565; A9270; G0378; J0131; J2270; J2405; J7030; J7040

== ENCOUNTER 2020-03-08 10:23 | Emergency (ER) | payer MEDICARE, OTHER, SELFPAY ==
[2020-03-08] VITALS (10 sets, daily range): BP systolic 122–171; BP diastolic 51–80; PULSE 53–105; RESP 13–24; TEMP 36.8; O2SAT 98–100
--- NOTE | ~2020-03-08 | CT_ITS ---
EXAMINATION: CT cervical spine wo con DATE: 03/08/2020 12:33 INDICATION: Fall. Head and neck injuries. Dizziness. Laceration to left side of head. TECHNIQUE: Computed tomography (CT) of the cervical spine was performed without intravenous contrast. Automated exposure control and iterative reconstruction technique were employed. Exam dose: 92.27 m Gy-cm total exam DLP. COMPARISON: 02/25/2020 CT cervical spine FINDINGS: C1 and C2 are normally aligned and the odontoid process is intact. No fracture or dislocati on or locked facet or prevertebral soft tissue swelling. There is multilevel degenerative disc disease of the cervical spine, particularly prominent at C4-5, C5-6, C6-7. There is associated mild retrolisthesis at C4-5 and C5-6 and particularly prominent poste rior spurring at these 2 levels. IMPRESSION: Degenerative changes; no fracture or dislocation Reviewed, dictated and finalized at [facility]. Reviewed, dictated and finalized at [facility].
--- NOTE | ~2020-03-08 | CT_ITS ---
EXAMINATION: CT brain wo con DATE: 03/08/2020 12:33 INDICATION: Fall. Head injury. TECHNIQUE: Computed tomography (CT) of the head was performed without intravenous contrast. The mA wa s adjusted according to patient size. Iterative reconstruction technique was employed. Exam dose: 60 5.33 mGy-cm total exam DLP. COMPARISON: 02/25/2020 CT brain FINDINGS: There is prominent diminished attenuation of the subcortical and particularly the deep whit e matter, a nonspecific finding. There are vertebral and carotid siphon internal carotid artery calci fications. No intracranial mass lesion or hemorrhage or cerebrovascular accident is evident. There is no midline shift or mass effects. No subdural or epidural hematoma. No fracture of the cranial vault. The paranasal sinuses and mastoid air cells are unremarkable. IMPRESSION: No acute intracranial finding or skull fracture Reviewed, dictated and finalized at [facility]. Reviewed, dictated and finalized at [facility].
--- NOTE | 2020-03-08 10:29 | ECG_ITS ---
Measurements Intervals [place] Rate: 98 P: 84 VA: 244 QRS: 105 QRSD: 70 T: 90 QT: 349 QTc: 446 Interpretive Statements SINUS RHYTHM WITH FIRST DEGREE AV BLOCK VENTRICULAR PREMATURE COMPLEX CANNOT RULE OUT SEPTAL INFARCT, AGE INDETERMINATE RIGHT AXIS DEVIATION LOW QRS VOLTAGE IN LIMB LEADS BORDERLINE T WAVE ABNORMALITY- DIFFUSE LEADS BASELINE ARTIFACT- I, III, AVL, AVF, V3, V6 ABNORMAL ECG Electronically Signed On 03-08-2020 10:57:53 CDT by Isidro Kearns D.O.
[2020-03-08 11:22] LABS: Basophils Absolute Auto 0.1 K/mm3 (0.0-0.1); Basophils Percent Auto 1.3 % (0.2-1.2); Eosinophils Absolute Auto 0.1 K/mm3 (0-0.3); Eosinophils Percent Auto 1.3 % (0-4.4); Hematocrit 31.7 % (37.0-47.0); Hemoglobin 10.8 g/dL (12.0-15.0); Immature Granulocyte Absolute 0.05 K/mm3 (0.00-0.031); Immature Granulocyte Percent A 0.9 % (0-0.5); Lymphocytes Absolute Auto 0.99 K/mm3 (0.9-3.2); Lymphocytes Percent Auto 18.5 % (18.3-44.2); Mean Corpuscular HGB Conc 34.1 g/dl (32-36); Mean Corpuscular Hemoglobin 33.4 pg (26-34); Mean Corpuscular Volume 98.1 fl (80-100); Mean Platelet Volume 9.2 fl (7.4-10.4); Monocytes Absolute Auto 0.4 K/mm3 (0.1-0.6); Monocytes Percent Auto 6.9 % (2.6-8.5); Neutrophils Absolute Auto 3.8 K/mm3 (1.3-6.7); Neutrophils Percent Auto 71.1 % (45.5-73.1); Platelet Count Result 227 k/mm3 (150-375); Red Blood Count 3.23 M/mm3 (4.2-5.4); Red Cell Distribution Width 15.3 % (11.5-14.5); White Blood Count 5.3 K/mm3 (4.5-10.0)
--- NOTE | 2020-03-08 11:23 | PC.NURSE ---
pt currently refusing to lift either arm, RN did obsserve her moving both hands.
--- NOTE | 2020-03-08 11:29 | PC.NURSE ---
SUNDAR Crawford at bedside for assessment.
--- NOTE | 2020-03-08 11:35 | PC.NURSE ---
RN spoke with daughter, daughter updated on pt status.
[2020-03-08 11:37] LABS: Blood Urea Nitrogen 14 mg/dL (7-17); Calcium 9.1 mg/dL (8.4-10.2); Carbon Dioxide 27 mmol/L (22-30); Chloride 105 mmol/L (98-107); Estimated CRCL calculation 26 ml/min; Estimated Glomerular Filt Rate 60; Glucose 141 mg/dL (65-105); Potassium 3.6 mmol/L (3.4-5.0); Sodium 139 mmol/L (137-145)
--- NOTE | 2020-03-08 11:38 | PC.NURSE ---
Michelle - Parisa Terryll
--- NOTE | 2020-03-08 11:40 | ED.FALL ---
HPI - Fall General Chief Complaint: Fall Stated Complaint: FALL Time Seen by Provider: 03/08/20 11:26 History of Present Illness HPI Narrative: She went outside to smoke this morning remembers feeling very warm then falling into the wall. She does not believe that she lost consciousness. She reports severe pain in the hands and arms bilaterally. She also sustained a laceration to the left forehead. Per EMS she was bradycardic to the 40s so they gave her atropine. She was seen here 10 days ago after a fall. at that time she was found to have a left collar bone fracture and bradycardia and she was admited to the hospital. History limited by poor historian Related Data Home Medications Medication Instructions Recorded Confirmed amlodipine 2.5 mg PO DAILY 11/05/19 02/25/20 Allergies Allergy/AdvReac Type Severity Reaction Status Date / Time No Known Allergies Allergy Verified 02/25/20 06:41 Review of Systems Review of Systems: All systems reviewed & are unremarkable except as noted in HPI and below Eyes: Eyes: Denies change in vision PMFSH Past Medical History Medical History Hypertension Hypothyroid Surgical History Surgical History History of appendectomy Family History Family History Mother due to natural causes Father due to natural causes Social History Social History Social History: The patient tells me that she lives home alone. She is . She has 1 daughter who is estranged from her. She desires to be a DNR and does not have a durable power substance addiction coordinator for healthcare. 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 Who lives home alone in an apartment by herself. She states that she is down to 5 or 6 cigarettes a day. She does not use marijuana illicit drugs or alcohol. Years smoked: 60 Smoking status: Current every day smoker Tobacco type: cigarettes Alcohol intake: former Substance use type: does not use Gender identity (if verbalized by the patient): Female Spiritual care concerns: No Exam Const: General: no acute distress and alert Nutritional Appearance: well nourished Orientation/consciousness: patient oriented x3 HENMT: Other: 4 cm laceration to left forehead Eyes: Conjunctivae: conjunctivae normal Pupils: Equal, round and reactive pupils present EOM: EOMs intact bilaterally Neck: Neck: normal visual inspection Resp: Effort & Inspection: normal respiratory effort Auscultation: clear to auscultation bilaterally Cardio: Rate: regular rate Rhythm: regular rhythm Skin: General skin exam: normal color Neuro: General: patient oriented x3, moves all extremities, no focal motor deficits and CN's II-XI intact bilaterally Speech: normal speech Extrem: General: normal to inspection Course Vital Signs Vital signs: Vital Signs Temperature 36.8 C 03/08/20 10:21 Pulse Rate 105 H 03/08/20 10:21 Respiratory Rate 18 03/08/20 10:21 Blood Pressure 131/68 03/08/20 10:21 Pulse Oximetry 98 03/08/20 10:21 Temperature 36.8 C 03/08/20 10:21 Pulse Rate 60 03/08/20 17:14 Respiratory Rate 18 03/08/20 17:14 Blood Pressure 156/59 H 03/08/20 17:14 Pulse Oximetry 98 03/08/20 17:14 Procedures Laceration Laceration 1: Date: 03/08/20 Site: face Size (cm): 4 Description: irregular Depth: simple, single layer Local Anesthetic: lidocaine 1% and with epi Amount of anesthesia used (mL): 4 Pre-repair: wound explored and irrigated ====== Skin Level ====== Skin layer closed with: other (fast gut) Size (cm): 5-0 Number of sutures: 8 ====== Subcutaneous Layer ====== ====== Muscle Layer ====== ====== Tendon Layer ===
--- NOTE | 2020-03-08 12:29 | PC.NURSE ---
pt to imaging via stretcher with radiology at this time. .
--- NOTE | 2020-03-08 15:46 | PC.NURSE ---
pt refusing Orthostatics at this time. Pt states I cant even lift my arms at all.
== END 2020-03-08 17:15 ==
PROVIDERS: Physician Assistant; Emergency Provider Emergency Medicine
DX: S01.81XA Laceration without foreign body of other part of head, initial encounter (principal); F17.210 Nicotine dependence, cigarettes, uncomplicated; I10 Essential (primary) hypertension; E03.9 Hypothyroidism, unspecified; W01.0XXA Fall on same level from slipping, tripping and stumbling without subsequent striking against object, initial encounter
CPT/HCPCS: 12013; 36415; 70450; 72125; 80048; 85025; 93005; 99284; A9270

== ENCOUNTER 2020-03-09 11:12 | Inpatient (IN) | payer MEDICARE, OTHER, SELFPAY ==
[2020-03-09] VITALS (7 sets, daily range): BP systolic 124–184; BP diastolic 43–79; PULSE 55–71; RESP 12–20; TEMP 36.6–36.9; O2SAT 97–100; BMI 17.1
--- NOTE | ~2020-03-09 | CT_ITS ---
EXAMINATION: CT brain wo con DATE: 03/09/2020 12:40 INDICATION: Altered mental status TECHNIQUE: Computed tomography (CT) of the head was performed without intravenous contrast. Sagittal and coronal reconstructions were performed. The mA was adjusted according to patient size. Iterative reconstruction technique was employed. The dose-length product was 605.33 mGy-cm. COMPARISON: head CT dated 03/08/2020 FINDINGS: No acute intracranial hemorrhage, acute infarction or abnormal extra axial fluid collection. There is prominent periventricular predominant scattered white matter hypoattenuation consistent with chronic small vessel ischemic disease. Ventricles are normal and symmetric. No mass/mass effect. Mild mucos al thickening the ethmoid sinuses. The orbitsoutside and mastoid air cells are normal. Intracranial c alcified cerebral atherosclerosis is noted. IMPRESSION: 1. No acute intracranial process. 2. Stable appearance of prominent periventricular predominant white matter hypoattenuation consistent with chronic small vessel ischemic disease. Reviewed, dictated and finalized at location [facility]. IMPRESSION: 1. No acute intracranial process. 2. Stable appearance of prominent periventricular predominant white matter hypo attenuation consistent with chronic small vessel ischemic disease.
--- NOTE | ~2020-03-09 | US_ITS ---
EXAMINATION: US carotid duplex BI DATE: 03/10/2020 11:38 INDICATION: Carotid atherosclerosis. Vertigo. Encephalopathy. Syncope. TECHNIQUE: Grayscale, color Doppler, and pulsed Doppler images of the cervical carotid arteries were obtained. The degree of vessel stenosis is placed in one of the following categories: normal, <50%, 5 0-69%, >=70% but less than near-occlusion, near-occlusion, or total occlusion. Note that percent sten osis relative to normal distal artery lumen diameter is indirectly measured from velocity measurement s as described by Jeremy, et al. Radiology 2003; 229:340-346. COMPARISON: Cervical CT dated 03/08/2020 FINDINGS: RIGHT: The right common carotid artery (CCA) peak systolic velocity (PSV) is 60 cm/s. The right internal car otid artery (ICA) PSV is 90 cm/s. The right ICA end-diastolic velocity (EDV) is 17 cm/s. The right IC A/CCA PSV ratio is 1.5. Grayscale and color Doppler images yield an estimate of <50% diameter reducti on from plaque in the ICA. The external carotid artery (ECA) PSV is 68 cm/s. There is antegrade flow in the right vertebral artery. LEFT: The left CCA PSV is 61 cm/s. The left ICA PSV is 86 cm/s. The left ICA EDV is 13 cm/s. The left ICA/C CA PSV ratio is 1.4. Grayscale and color Doppler images yield an estimate of <50% diameter reduction from plaque in the ICA. The ECA PSV is 80 cm/s. There is antegrade flow in the left vertebral artery. IMPRESSION: 1. <50% stenosis in the right internal carotid artery. 2. <50% stenosis in the left internal carotid artery. Reviewed, dictated and finalized at location [facility].
--- NOTE | ~2020-03-09 | XR_ITS ---
XR chest 1V portable 03/09/2020 12:28 Indication: Altered mental status. Dyspnea. Procedure: AP portable chest Comparison: 02/25/2020 Findings: Cardiomegaly. There is atherosclerosis. Small left pleural effusion. There is apical pleura l thickening/scarring. No focal air space disease, pulmonary edema, pleural effusion or suspected pne umothorax. Impression: 1: Small left pleural effusion. Reviewed, dictated and finalized at location [facility]. Impression: 1: Small left pleural effusion.
--- NOTE | 2020-03-09 11:23 | ECG_ITS ---
Measurements Intervals Hardy Rate: 55 P: 86 HI: 201 QRS: 93 QRSD: 82 T: 87 QT: 422 QTc: 407 Interpretive Statements SINUS BRADYCARDIA RIGHT AXIS DEVIATION LOW QRS VOLTAGE IN PRECORDIAL LEADS NONSPECIFIC T-WAVE ABNORMALITY- INF/LAT LEADS BASELINE ARTIFACT- II, III, AVF, V6 BORDERLINE ECG Electronically Signed On 03-09-2020 12:13:39 CDT by Isidro Kearns D.O.
--- NOTE | 2020-03-09 11:28 | ED.WEAKNESS ---
HPI - Weakness General Chief complaint: Weakness Stated complaint: BACK PAIN Time Seen by Provider: 03/09/20 11:19 Source: RN notes reviewed History of Present Illness HPI Narrative: Patient presents emergency department from [facility] via EMS for altered mental status. History is per EMS. The patient had been wheeled outside today she was sitting in her sweater and pants and had been on the patio to smoke. Been unknown on time she had been out of there when staff came to check on her she was noted to be slumped over in wheelchair and unresponsive. She was wheeled inside and EMS was called. Upon EMS arrival patient was back to being awake and alert. Patient is currently back to her baseline alert and oriented x4 answering all questions she does not recall the episode and denies any symptoms at this time. Patient was seen in the emergency department yesterday for a fall out of her wheelchair striking her head she denies any fevers or chills chest pain shortness of breath or any other symptoms at this time Related Data Home Medications Medication Instructions Recorded Confirmed amlodipine 2.5 mg PO DAILY 11/05/19 02/25/20 Allergies Allergy/AdvReac Type Severity Reaction Status Date / Time No Known Allergies Allergy Verified 02/25/20 06:41 Review of Systems Review of Systems: Narrative: Gen.: Denies fevers or chills Eyes: Denies eye pain or visual change ENT: Denies congestion Respiratory: Denies shortness of breath or cough CV: Denies chest pain or palpitations GI: Denies abdominal pain nausea, emesis or diarrhea Musculoskeletal: Denies back pain or muscle pain Neuro: Denies numbness, tingling, notes of altered mental status Skin: Denies rash Except as documented, all other systems reviewed and negative [facility] Past Medical History Medical History Hypertension Hypothyroid Social History Social History Social History: The patient tells me that she lives home alone. She is . She has 1 daughter who is estranged from her. She desires to be a DNR and does not have a durable power corporate associate attorney for healthcare. 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 Who lives home alone in an apartment by herself. She states that she is down to 5 or 6 cigarettes a day. She does not use marijuana illicit drugs or alcohol. Years smoked: 60 Smoking status: Current every day smoker Tobacco type: cigarettes Alcohol intake: former Substance use type: does not use Gender identity (if verbalized by the patient): Female Spiritual care concerns: No Exam Narrative: Exam Narrative: APPEARANCE: No acute distress, nontoxic, resting in bed EYES: EOMI HEENT: Normocephalic, atraumatic, OMM RESPIRATORY: No respiratory distress Clear to auscultation bilaterally with no rhonchi wheezing or rales. CARDIOVASCULAR: Regular rate and rhythm without murmurs rubs or gallops. Chest: Tender palpation of the left collarbone with ecchymosis present ABDOMINAL: Soft, nontender, nondistended, no rebound or guarding MUSCULOSKELETAl: Moves all extremities. No clubbing, cyanosis or edema. NEURO: Awake and alert x 4 Following commands, speech normal, no focal deficits SKIN:: Warm, dry. No rashes lesions or abrasions PSYCHIATRIC: Normal affect/mood, Course Course Emergency Course: Reviewed old records Discussed with GAYLE Main for Dr. Hills presentation work-up. Agrees with admission at this time Discussed with patient and family results of workup and diagnosis. Discussed need for admission. Patient and family understand and agree to current treatment plan Vital Signs Vital signs: Vital Signs Temperature 98 F 03/09/20 11:13 Pulse Rate 58 L 03/09/20 11:13 Respiratory Rate 12 03/09/20 11:13 Blood Pressure 124/43 L 03/09/20 11:13 Pulse Oximetry 97 03/09/20 11:13 Temperature 98 F 03/09/20 11:13 Pulse Rate 58 L
[2020-03-09] MEDS: SODIUM CHLORIDE 0.9% IV 1,000 ML 999 ML IV CONT (11:31)
[2020-03-09 11:48] LABS: Basophils Absolute Auto 0.1 K/mm3 (0.0-0.1); Basophils Percent Auto 0.8 % (0.2-1.2); Eosinophils Percent Auto 0.4 % (0-4.4); Hematocrit 33.2 % (37.0-47.0); Hemoglobin 11.1 g/dL (12.0-15.0); Immature Granulocyte Absolute 0.05 K/mm3 (0.00-0.031); Immature Granulocyte Percent A 0.6 % (0-0.5); Lymphocytes Absolute Auto 1.05 K/mm3 (0.9-3.2); Lymphocytes Percent Auto 13.6 % (18.3-44.2); Mean Corpuscular HGB Conc 33.4 g/dl (32-36); Mean Corpuscular Hemoglobin 33.2 pg (26-34); Mean Corpuscular Volume 99.4 fl (80-100); Mean Platelet Volume 9.5 fl (7.4-10.4); Monocytes Absolute Auto 0.6 K/mm3 (0.1-0.6); Monocytes Percent Auto 8.2 % (2.6-8.5); Neutrophils Absolute Auto 5.9 K/mm3 (1.3-6.7); Neutrophils Percent Auto 76.4 % (45.5-73.1); Platelet Count Result 255 k/mm3 (150-375); Red Blood Count 3.34 M/mm3 (4.2-5.4); Red Cell Distribution Width 15.5 % (11.5-14.5); White Blood Count 7.7 K/mm3 (4.5-10.0)
[2020-03-09 11:57] LABS: INR 1.2; Prothrombin Time 14.7 Seconds (11.1-14.7)
[2020-03-09 11:58] LABS: Partial Thromboplastin Time 32.9 SECONDS (22.3-36.8)
[2020-03-09 12:00] LABS: Alanine Aminotransferase 19 U/L (4-35); Albumin Level 4.6 g/dL (3.5-5.1); Alkaline Phosphatase 107 U/L (38-126); Aspartate Amino Transferase 82 U/L (14-36); Blood Urea Nitrogen 17 mg/dL (7-17); Calcium 9.6 mg/dL (8.4-10.2); Carbon Dioxide 25 mmol/L (22-30); Chloride 102 mmol/L (98-107); Creatine Kinase 1009 U/L (30-135); Estimated CRCL calculation 24 ml/min; Estimated Glomerular Filt Rate 53; Glucose 129 mg/dL (65-105); Potassium 3.9 mmol/L (3.4-5.0); Sodium 138 mmol/L (137-145)
[2020-03-09 12:12] LABS: Troponin I < 0.012 ng/mL (0.000-0.034)
--- NOTE | 2020-03-09 13:56 | PC.NURSE ---
Called and spoke with patients sister in law Linda per pts request and notified her of pts admission.
[2020-03-09 13:59] LABS: Add Urine Microscopic? YES; Appearance Urine Clear (Clear); Bacteria Urine Trace /hpf; Bilirubin Urine Negative (Negative); Blood Urine Negative (Negative); Color Urine Yellow (Yellow); Glucose Urine UA Negative (Negative); Ketones Urine 1+ mg/dL (Negative); Leukocyte Esterase Ur Trace LEU/UL (Negative); Mucus Urine Few /lpf; Nitrate Urine Negative (Negative); Protein Urine Negative (Negative); RBC Urine 0-2 /hpf (0-2); Specific Grav Ur 1.012 (1.001-1.035); Squamous Epithelial Cell Urine Many /hpf (Few); Urobilinogen Urine Negative mg/dL (<2.0)
--- NOTE | 2020-03-09 14:31 | PC.NURSE ---
This patient, Kayode Arroyo, was admitted to Medical Room 343-01. Patient/family oriented to hospital policies and general routines including ID bracelet, bed and alarms, visiting hours, pain management, procedures, bathroom and other care routines, personal items, smoking policy, room service/diet, and visiting hours. Valuables list has been completed. Information on how to activate the Rapid Response Team has been discussed. Patient/Family are encouraged to report perceived risks to care and to ask questions if they do not understand what they are told or what they should do.
[2020-03-09] MEDS: SODIUM CHLORIDE 0.9% IV 1,000 ML 125 ML IV CONT ×2 (14:38→22:49)
[2020-03-09 17:03] LABS: Troponin I < 0.012 ng/mL (0.000-0.034)
--- NOTE | 2020-03-09 20:00 | PM.IMHP ---
H&P: HPI History of Present Illness Chief complaint: Unresponsive. Narrative: Kayode Arroyo is a very pleasant 84-year-old female with hypertension and hypothyroidism who presented to the emergency department via EMS from [facility] for evaluation after she was reportedly found unresponsive in her wheelchair outdoors. She is known to the hospitalist service as she was admitted to us for several days at the beginning of the month after presenting to the emergency department with complaints of left shoulder pain after a fall at home. Prior to her fall she felt lightheaded and dizzy and she was found to have a minimally displaced left clavicle fracture of the lateral head. Her TSH was > 100 and she then admitted that she had not been taking her levothyroxine for several months for unclear reasons. She was also bradycardic which was attributed to the hypothyroidism. Her blood pressures were low normal and her amlodipine was stopped. PT/OT felt she would benefit from skilled therapy for further treatment and she was discharged to [facility] on February 27. She has been doing well since that time, participating in therapy with no real complaints although she will on occasion still get dizzy, mainly with position changes. In any regard this morning she was wheeled outside in her sweater and sweat pants to the patio so she could have a cigarette. When staff came to check on her (it is unknown how long she was outside) she was reportedly unresponsive and slumped over in her wheelchair. On EMS arrival she was alert and oriented x4. She does not recall feeling poorly and assumes that she had just fallen asleep. It is noted that she was seen in the emergency department 24 hours ago for a fall, interestingly that too occurred while she was outside in the morning having a cigarette. At that time she reported feeling warm prior to falling into the wall, and she sustained a laceration to her left forehead. On EMS arrival she was bradycardic in the 40s and she was given atropine. Pulse was in the mid 50s with stable blood pressures, and she was discharged back to [facility]. At the time my evaluation she has no complaints but does mention she had a decreased appetite yesterday. She denies fever, chills, sweats, cold and flu symptoms, chest pain, pleuritic pain, shortness of breath, nausea, vomiting, diarrhea, and dysuria. She also denies headache, auditory and visual changes, paresthesias, and focal weakness Review of Systems Review of Systems: Narrative: Twelve systems were reviewed with pertinent positives and negatives as per HPI. Except as documented, all other systems were reviewed and are negative. [facility] Past Medical History Medical History (Updated 03/10/20 @ 00:04 by Etelvina Acuña PA-C) Chronic anemia Depression Hypertension Hypothyroid Surgical History Surgical History History of appendectomy Family History Family History Mother Heart attack Father Throat cancer Other due to natural causes Social History Social History (Updated 03/09/20 @ 23:58 by Etelvina Acuña PA-C) Social History: The patient lives in her own home in [place], but is currently doing rehab at [facility]. She is originally from [place] of [facility] and she moved to the [place] after she met a soldier in [place]. She has 1 daughter who lives in [place], it does not sound as though they keep in much contact. She has smoked for 62 years, typically 5 or 6 cigarettes a day. She denies alcohol and illicit substance abuse. She designates her [id number] Linda Maldonado as her surrogate decision maker. She is listed as a full code but previously had want to be a DNR. Years smoked: 62 Spiritual care concerns: No Meds Home Medications and Allergies Home Medications Medication Instructions Recorded Confirmed Type
[2020-03-09 20:15] LABS: Troponin I < 0.012 ng/mL (0.000-0.034)
[2020-03-10] VITALS (12 sets, daily range): BP systolic 136–170; BP diastolic 52–68; PULSE 56–86; RESP 14–18; TEMP 36.7–37; O2SAT 97; BMI 17.1
--- NOTE | 2020-03-10 00:08 | ECHO_ITS ---
Patient Info Name: Kayode Arroyo Age: 84 years : 1935 Gender: Female Ht: 62 in Wt: 93 lbs BSA: 1.35 m2 HR: 61 bpm BP: 158 / 52 mmHg Heart Rhythm: Bradycardia Technical Quality: Good Exam Date: 03/10/2020 10:42 AM Exam Location: [facility] Pulmonary Exam Room: 343 Patient Status: Inpatient Admit Date: 03/10/2020 Staff Ordering Physician: Etelvina Acuña PA-C Check Pilot: Joana Noble RDCS Attending Provider: Shan Nieves PA-C Referring Physician: Domenico NGUYEN; Exam Type: CA echo doppler color flow Study Info Indications - SYNCOPE BRADYCARDIA Complete two-dimensional, color flow and Doppler transthoracic echocardiogram is performed. Summary 1. Normal left ventricular size with moderate concentric left ventricular hypertrophy. Good left ventricular systolic function, EF greater than 70%, with no focal wall motion abnormalities. Grade 1 diastolic dysfunction is present. There is mild aliasing of flow in the LVOT with a mildly elevated LVOT velocity of 1.7 m/sec corresponding trim minimal outflow tract gradient, likely not clinically significant. 2. No significant valve disease. 3. Left atrial chamber dimension is moderately enlarged. 4. No pulmonary hypertension, estimated pulmonary arterial systolic pressure is 24 mmHg. 5. Dilated inferior vena cava with <50% collapse upon inspiration consistent with significantly elevated right atrial pressure, 10 mmHg. 6. There is trivial pericardial effusion. Left Ventricle Left ventricular chamber dimension is normal. Left ventricular systolic function is normal, estimated at >70%. There is moderately increased left ventricular wall thickness. Left ventricular septal wall motion is normal. The left ventricular diastolic function is grade I diastolic dysfunction. Right Ventricle Right ventricular chamber dimension is normal. Right ventricular systolic function is normal. Left Atria Left atrial chamber dimension is moderately enlarged. Right Atria Right atrial chamber dimension is normal. Aortic Valve The aortic valve is trileaflet. There is moderate aortic valve sclerosis. There is no aortic valve stenosis. There is no aortic valve regurgitation. Pulmonic Valve The pulmonic valve is normal. There is no pulmonic valve stenosis. There is no pulmonic regurgitation. Mitral Valve The mitral valve has normal leaflets. There is no mitral valve stenosis. There is trace mitral valve regurgitation. Tricuspid Valve The tricuspid valve leaflets are normal. There is no significant tricuspid valve stenosis. There is trace tricuspid valve regurgitation. No pulmonary hypertension, estimated pulmonary arterial systolic pressure is 24 mmHg. Pericardium/Pleural The pericardium appears normal. There is trivial pericardial effusion. Inferior Vena Cava Dilated inferior vena cava with <50% collapse upon inspiration consistent with significantly elevated right atrial pressure, 10 mmHg. Aorta The aortic root size at the sinus of Valsalva is normal. The prox ascending aorta size is normal. Left Ventricular Outflow Tract Name Value Normal LVOT 2D LVOT Diameter 2.0 cm LVOT Doppler ---------
[2020-03-10] MEDS: LEVOTHYROXINE SODIUM 50 MCG TABLET PO (05:34)
[2020-03-10 06:02] LABS: Basophils Absolute Auto 0.1 K/mm3 (0.0-0.1); Basophils Percent Auto 0.8 % (0.2-1.2); Eosinophils Absolute Auto 0.1 K/mm3 (0-0.3); Eosinophils Percent Auto 1.3 % (0-4.4); Hemoglobin 10.3 g/dL (12.0-15.0); Immature Granulocyte Absolute 0.02 K/mm3 (0.00-0.031); Immature Granulocyte Percent A 0.3 % (0-0.5); Lymphocytes Absolute Auto 1.63 K/mm3 (0.9-3.2); Lymphocytes Percent Auto 21.9 % (18.3-44.2); Mean Corpuscular HGB Conc 34.3 g/dl (32-36); Mean Corpuscular Hemoglobin 33.1 pg (26-34); Mean Corpuscular Volume 96.5 fl (80-100); Monocytes Absolute Auto 0.8 K/mm3 (0.1-0.6); Monocytes Percent Auto 10.2 % (2.6-8.5); Neutrophils Absolute Auto 4.9 K/mm3 (1.3-6.7); Neutrophils Percent Auto 65.5 % (45.5-73.1); Platelet Count Result 225 k/mm3 (150-375); Red Blood Count 3.11 M/mm3 (4.2-5.4); White Blood Count 7.4 K/mm3 (4.5-10.0)
[2020-03-10 06:31] LABS: Blood Urea Nitrogen 11 mg/dL (7-17); Calcium 8.7 mg/dL (8.4-10.2); Carbon Dioxide 25 mmol/L (22-30); Chloride 107 mmol/L (98-107); Creatine Kinase 973 U/L (30-135); Estimated CRCL calculation 36 ml/min; Estimated Glomerular Filt Rate > 60; Glucose 82 mg/dL (65-105); Magnesium 1.8 mg/dL (1.6-2.3); Potassium 3.5 mmol/L (3.4-5.0); Sodium 138 mmol/L (137-145)
[2020-03-10] MEDS: SODIUM CHLORIDE 0.9% IV 1,000 ML 125 ML IV CONT (06:53)
[2020-03-10 06:55] LABS: Free T4 Free Thyroxine 0.51 ng/mL (0.78-2.19)
[2020-03-10] MEDS: amLODIPine BESYLATE 2.5 MG TABLET PO (08:43)
--- NOTE | 2020-03-10 09:46 | WPDCN ---
Assessment and Plan Assessment and plan (1) Unresponsive episode: Code(s): R41.89 - Other symptoms and signs involving cognitive functions and awareness Status: Acute Assessment and Plan: Unclear of the etiology of this unresponsive episode. Has she had syncope? Was just sleeping? Orthostatic? Mildly bradycardic when evaluated by EMS with heart rate of 54, remains intermittently mildy bradycardic with no excessive bradycardia noted this admission. (2) Bradycardia: Code(s): R00.1 - Bradycardia, unspecified Status: Acute Assessment and Plan: Patient has been noted to be bradycardic in the recent past with heart rate in the 40s. When she had her fall on 03/08/2020 or heart rate was 45-48 and responded to atropine, so it is possible she is having symptomatic bradycardia. There is a good chance that her bradycardia is related to her severe hypothyroidism. I think she needs further evaluation for bradycardia but I am reluctant to consider pacemaker implant at this time since this may be reversible phenomenon. Continue thyroid medication Outpatient 30 day monitor for further evaluation of any persistent bradycardia as she becomes euthyroid Check orthostatics as well. Will need 24 Hr contact guard for safety for a while. (3) Recurrent falls: Code(s): R29.6 - Repeated falls Status: Acute Assessment and Plan: Possibly secondary to bradycardia, or perhaps orthostasis. Patient denies dizziness but apparently reported some dizziness that the times. (4) Hypothyroid: Qualifiers: Hypothyroidism type: unspecified Qualified Code(s): E03.9 - Hypothyroidism, unspecified Code(s): E03.9 - Hypothyroidism, unspecified Status: Chronic Assessment and Plan: Profound hypothyroidism noted with a TSH of greater than 100 earlier this month, now down to 80. Patient had been noncompliant with her thyroid medicine HPI Data of Consult Date/Time: 03/10/20 09:46 Requesting Physician: Shan Nieves PA-C Primary Care Provider: [place] Consult Narrative Narrative: Date of service: 03/10/2020 Kayode Arroyo is a 84 year old female whom I was asked to see at the request of the hospitalist for my advice and opinion regarding her bradycardia in consultation. The patient admitted after a fall and clavicular fracture on February 24, at home. She has getting up out of bed, felt dizzy and fell. On arrival to [facility] reports her blood pressure was 120/52 and pulse is 68. On that admission apparently her heart rate was sometimes in the 40s. Her TSH was greater than 100. She said she had stopped her Synthroid which was restarted at a higher dose. She was discharged to [facility]. On 03/09/2020 she had another fall into a wall at [facility], and on EMS arrival her blood pressure was 98/45 with a pulse of 45-48. She was given some atropine. Laceration which was attended to in the ER. Yesterday at [facility] the nurses found her slumped in her wheelchair with poor color and shallow breathing and transferred her to the bed. When the ambulance arrived she was awake and her pulse is 54 and blood pressure 114-132/40s. She was brought to the hospital admitted for evaluation. The patient denies any dizziness or syncope, saying she just slipped or tripped when she had her falls. She does not recall yesterday's events very well. Her TSH is now 80. Heart rate on telemetry is now running in the 50s to 60s. There is no history of any heart disease but she has had some hypertension in the past as well as thyroid disease. No chest pain, shortness of breath or edema. She still smokes. Review of Systems Constitutional: Constitutional: Denies fatigue and Denies weakness Comments: Likes to sleep Eyes: Eyes: Reports no additional eye complai
[2020-03-10] MEDS: SODIUM CHLORIDE 0.9% IV 1,000 ML 75 ML IV CONT (17:54)
--- NOTE | 2020-03-10 18:36 | PM.IMPN ---
Progress Note: A&P Assessment and Plan (1) Unresponsive episode: Code(s): R41.89 - Other symptoms and signs involving cognitive functions and awareness Status: Acute Assessment and Plan: Patient reports that she was simply sleeping but concerning that she may have had a syncopal episode in light of the fact that she has had multiple falls recently with intermittent bradycardia. Tele shows sinus with occasional bradycardia into 50s and PVCs. Continue Tele Echo pending Cardiology consulted and appreciate recommendations Orthostatics daily; unremarkable today (2) Rhabdomyolysis: Code(s): M62.82 - Rhabdomyolysis Status: Acute Assessment and Plan: CK improving today IV fluid rehydration. Trend CK levels. (3) Chronic anemia: Code(s): D64.9 - Anemia, unspecified Status: Acute Assessment and Plan: Hemoglobin is stable on review of previous labs. (4) Hypothyroid: Qualifiers: Hypothyroidism type: unspecified Qualified Code(s): E03.9 - Hypothyroidism, unspecified Code(s): E03.9 - Hypothyroidism, unspecified Status: Chronic Assessment and Plan: TSH improved from >100 2 weeks ago to 80 today; improved Will continue with levothyroxine (5) Hypertension: Qualifiers: Hypertension type: essential hypertension Qualified Code(s): I10 - Essential (primary) hypertension Code(s): I10 - Essential (primary) hypertension Status: Chronic Assessment and Plan: Amlodipine was stopped at her last hospitalization, but blood pressures are creeping up. Amlodipine resumed today Monitor Subjective Date/time seen: 03/10/20 18:36 Interval history: Patient is a 84 yo F with history of hypertension and hypothyroidism who is here for evaluation for an episode of unresponsiveness while in her wheelchair at [facility]. Patient states she feels okay today. No complaints for me today, although notes that she feels a bit weak today and wobbly . Denies f/c/s, headaches, dizziness, lightheadedness, cp/palpitations, sob/cough, n/v/d/c, abd pain, changes in BMs, dysuria, hematuria, cloudy urine, calf pain/swelling. Review of Systems Review of Systems: All systems reviewed & are unremarkable except as noted in HPI and below Exam Narrative: Exam Narrative: Patient lying in semi-pichardo's position at time of visit Const: General: cooperative, comfortable, no acute distress, well developed and alert Nutritional Appearance: thin Orientation/consciousness: patient oriented x3 HENMT: Head: normocephalic and laceration (left forehead; no s/sx of infection) General nose exam: Normal nares present Face and sinus: face symmetric Mouth: Yes moist mucous membranes Eyes: General: appearance normal, both eyes and all related structures EOM: EOMs intact bilaterally Neck: Neck: trachea midline and supple Resp: Effort & Inspection: normal respiratory effort Auscultation: clear to auscultation bilaterally Cardio: Rate: regular rate Rhythm: regular rhythm Heart sounds: no murmurs GI: Inspection: non-distended GI Palp: No abdominal tenderness Auscultation: normal bowel sounds and normoactive bowel sounds Skin: General skin exam: normal color Extrem: Right lower extremity: no edema Left lower extremity: no edema Other: NTTP b/l calves Psych: Mental Status: mental status grossly normal Affect: normal affect Objective Data Vital Signs Vital Signs: Last Vital Signs Temp 98.6 F 03/10/20 14:00 Pulse 86 03/10/20 18:32 Resp 18 03/10/20 14:00 BP 170/68 H 03/10/20 18:32 Pulse Ox 97 03/10/20 14:00 Intake/Output Intake/Output: Intake & Output 03/07/20
[2020-03-11] VITALS (12 sets, daily range): BP systolic 141–157; BP diastolic 44–61; PULSE 52–71; RESP 12–16; TEMP 36.3–37; O2SAT 98
[2020-03-11] MEDS: LEVOTHYROXINE SODIUM 50 MCG TABLET PO (05:35)
[2020-03-11 06:24] LABS: Blood Urea Nitrogen 12 mg/dL (7-17); Carbon Dioxide 28 mmol/L (22-30); Chloride 104 mmol/L (98-107); Creatine Kinase 568 U/L (30-135); Estimated CRCL calculation 36 ml/min; Estimated Glomerular Filt Rate > 60; Glucose 92 mg/dL (65-105); Magnesium 1.9 mg/dL (1.6-2.3); Potassium 3.4 mmol/L (3.4-5.0); Sodium 139 mmol/L (137-145)
[2020-03-11] MEDS: amLODIPine BESYLATE 2.5 MG TABLET PO (08:48)
[2020-03-11] MEDS: SODIUM CHLORIDE 0.9% IV 1,000 ML 75 ML IV CONT ×2 (10:31→23:50)
--- NOTE | 2020-03-11 13:11 | PM.IMPN ---
Progress Note: A&P Assessment and Plan (1) Unresponsive episode: Code(s): R41.89 - Other symptoms and signs involving cognitive functions and awareness Status: Acute Assessment and Plan: Patient reports that she was simply sleeping but concerning that she may have had a syncopal episode in light of the fact that she has had multiple falls recently with intermittent bradycardia. Echo remarkable for mod LVH, normal EF, grade I diastolic disfunction. Tele shows sinus with occasional bradycardia into 50s and PVCs with subsequent pauses <2 sec Continue Tele Cardiology consulted and appreciate recommendations Orthostatics daily; unremarkable during stay (2) Rhabdomyolysis: Code(s): M62.82 - Rhabdomyolysis Status: Acute Assessment and Plan: CK improving today IV fluid rehydration. Trend CK levels. (3) Chronic anemia: Code(s): D64.9 - Anemia, unspecified Status: Acute Assessment and Plan: Hemoglobin is stable on review of previous labs. (4) Hypothyroid: Qualifiers: Hypothyroidism type: unspecified Qualified Code(s): E03.9 - Hypothyroidism, unspecified Code(s): E03.9 - Hypothyroidism, unspecified Status: Chronic Assessment and Plan: TSH improved from >100 two weeks ago to 80 today; improved Will continue with levothyroxine Likely recheck in 4 weeks (5) Hypertension: Qualifiers: Hypertension type: essential hypertension Qualified Code(s): I10 - Essential (primary) hypertension Code(s): I10 - Essential (primary) hypertension Status: Chronic Assessment and Plan: Amlodipine was stopped at her last hospitalization, but blood pressures are creeping up. BP improved since admission, but still elevated. 140s sys today Amlodipine resumed during stay Monitor Subjective Date/time seen: 03/11/20 13:11 Interval history: Patient is a 84 yo F with history of hypertension and hypothyroidism who is here for evaluation for an episode of unresponsiveness while in her wheelchair at [facility]. Patient states she feels okay today. No complaints for me today, although wants to smoke a cigarette; declines nicotine patch. Denies f/c/s, headaches, dizziness, lightheadedness, particularly with standing, cp/palpitations, sob/cough, n/v/d/c, abd pain, changes in BMs, dysuria, hematuria, cloudy urine, calf pain/swelling. Review of Systems Review of Systems: All systems reviewed & are unremarkable except as noted in HPI and below Exam Narrative: Exam Narrative: Patient lying supine in bed at time of visit Const: General: cooperative, comfortable, no acute distress, well developed and alert Nutritional Appearance: thin Orientation/consciousness: patient oriented x3 HENMT: Head: normocephalic and laceration (left forehead; no s/sx of infection) General nose exam: Normal nares present Face and sinus: face symmetric Mouth: Yes moist mucous membranes Eyes: General: appearance normal, both eyes and all related structures EOM: EOMs intact bilaterally Neck: Neck: trachea midline and supple Resp: Effort & Inspection: normal respiratory effort Auscultation: clear to auscultation bilaterally Cardio: Rate: regular rate Rhythm: regular rhythm Heart sounds: no murmurs GI: Inspection: non-distended GI Palp: No abdominal tenderness and Yes Soft to palpation Auscultation: normal bowel sounds and normoactive bowel sounds Skin: General skin exam: normal color Neuro: General: patient oriented x3 Extrem: Right lower extremity: no edema Left lower extremity: no edema Other: NTTP b/l calves Psych: Mental Status: mental status grossly normal Affect: normal affect Ob
[2020-03-11 14:35] LABS: SARS-CoV-2 RNA PCR Negative
--- NOTE | 2020-03-11 17:54 | PM.PNCARD ---
Progress Note: A&P Assessment and Plan (1) Unresponsive episode: Code(s): R41.89 - Other symptoms and signs involving cognitive functions and awareness Status: Acute Assessment and Plan: Unclear of the etiology of this unresponsive episode. Has she had syncope? Was just sleeping? Orthostatic? Mildly bradycardic when evaluated by EMS with heart rate of 54, remains intermittently mildy bradycardic with no excessive bradycardia noted this admission. (2) Bradycardia: Code(s): R00.1 - Bradycardia, unspecified Status: Acute Assessment and Plan: Noted to be bradycardic in the recent past with heart rate in the 40s. When she had her fall on 03/08/2020 or heart rate was 45-48 and responded to atropine, so it is possible she is having symptomatic bradycardia. There is a good chance that her bradycardia is related to her severe hypothyroidism. She needs further evaluation for bradycardia. Reluctant to consider pacemaker implant at this time since this may be reversible phenomenon. No significant pauses noted on the monitor. She remains in normal sinus rhythm with occasional PVCs. She does remain bradycardic heart rates 48-56. Continue thyroid medication Outpatient 30 day monitor for further evaluation of any persistent bradycardia as she becomes euthyroid. This will be sent to [facility] upon her discharge. She will not need come to the office to have her monitor placed. Not orthostatic. Will need 24 Hr contact guard for safety for a while. (3) Recurrent falls: Code(s): R29.6 - Repeated falls Status: Acute Assessment and Plan: Possibly secondary to bradycardia, or perhaps orthostasis. Lightheaded for only a few seconds when first gets out of bed to go to the bathroom. Denied any ongoing dizziness. (4) Hypothyroid: Qualifiers: Hypothyroidism type: unspecified Qualified Code(s): E03.9 - Hypothyroidism, unspecified Code(s): E03.9 - Hypothyroidism, unspecified Status: Chronic Assessment and Plan: Profound hypothyroidism noted with a TSH of greater than 100 earlier this month, now down to 80. She had been noncompliant with her thyroid medicine Additional Plan Unless she has significant bradycardia/pauses with symptoms prior to her discharge to [facility] will not see her over the weekend. See discharge instructions for follow-up. Plan discussed with Dr. Carmichael 1800 03/11/2020 Time Spent With Patient Time with patient: less than 15 minutes Subjective Date/time seen: 03/11/20 17:55 Interval history: Follow-up for: hypertension and hypothyroidism here for evaluation for an episode of unresponsiveness while in her wheelchair at [facility]. She does have bradycardia. Date of service: 03/11/2020 Subjective: Denied chest discomfort, shortness of breath, or palpitations. Feels cold. Slightly lightheaded for few seconds when she first gets out of bed. Review of Systems Constitutional: Constitutional: Denies fatigue, Denies headache(s) and Denies weakness Eyes: Eyes: Reports no additional eye complaints ENT: Denies vertigo, Denies headache(s) and Denies epistaxis Cardiovascular: Cardiovascular: Denies no additional cardiovascular complaints, Denies chest pain, Denies pedal edema, Denies leg edema, Reports lightheadedness (Few seconds when first gets up), Denies palpitations, Denies dyspnea and Denies dyspnea on exertion Respiratory: Respiratory: Denies cough, Denies dyspnea and Denies dyspnea on exertion Gastrointestinal: Gastrointestinal: Denies abdominal pain Genitourinary: Genitourinary: Denies hematuria Musculoskeletal: Musculoskeletal: Reports arthralgias (Left shoulder pain) Integumentary/Breasts: Skin/Breast: Reports wounds (Left forehead laceration) Neurologic: Denies Abnormal speech p
[2020-03-12] VITALS: PULSE 59
[2020-03-12 04:49] VITALS: PULSE 54
[2020-03-12 05:34] VITALS: BP 150/51; PULSE 59; RESP 13; TEMP 36.9; O2SAT 97
[2020-03-12 06:31] LABS: Blood Urea Nitrogen 10 mg/dL (7-17); Calcium 8.9 mg/dL (8.4-10.2); Carbon Dioxide 27 mmol/L (22-30); Chloride 107 mmol/L (98-107); Creatine Kinase 278 U/L (30-135); Estimated CRCL calculation 36 ml/min; Estimated Glomerular Filt Rate > 60; Glucose 88 mg/dL (65-105); Magnesium 1.9 mg/dL (1.6-2.3); Potassium 3.3 mmol/L (3.4-5.0); Sodium 139 mmol/L (137-145)
[2020-03-12] MEDS: LEVOTHYROXINE SODIUM 50 MCG TABLET PO (06:32)
[2020-03-12 08:00] VITALS: BP 150/51; PULSE 59; RESP 13; TEMP 36.9; O2SAT 97
[2020-03-12] MEDS: POTASSIUM CHLORIDE 20 MEQ TABLET 40 MEQ PO (08:33)
[2020-03-12] MEDS: amLODIPine BESYLATE 2.5 MG TABLET PO (08:33)
--- NOTE | 2020-03-12 08:34 | PM.DS ---
DS: Admitting Diagnosis Admitting Diagnosis Admitting Diagnosis: Other symptoms and signs involving cognitive functions and awareness DS: Discharge Diagnosis Discharge Diagnosis (1) Unresponsive episode: Code(s): R41.89 - Other symptoms and signs involving cognitive functions and awareness Status: Acute Assessment and Plan: Patient reports that she was simply sleeping but concerning that she may have had a syncopal episode in light of the fact that she has had multiple falls recently with intermittent bradycardia. Echo remarkable for mod LVH, normal EF, grade I diastolic disfunction. Tele shows sinus with occasional bradycardia 49-50s and PVCs with subsequent pauses <2 sec Cardiology consulted and appreciate recommendations Orthostatics daily during stay; unremarkable during stay PAtient to have 30 day monitor sent to [facility] for further monitoring F/u with Cardiology F/u with [facility] physcian (2) Rhabdomyolysis: Code(s): M62.82 - Rhabdomyolysis Status: Acute Assessment and Plan: CK improving today IV fluid rehydration during stay Follow up with [facility] physician (3) Chronic anemia: Code(s): D64.9 - Anemia, unspecified Status: Acute Assessment and Plan: Hemoglobin is stable on review of previous labs. (4) Hypothyroid: Qualifiers: Hypothyroidism type: unspecified Qualified Code(s): E03.9 - Hypothyroidism, unspecified Code(s): E03.9 - Hypothyroidism, unspecified Status: Chronic Assessment and Plan: TSH improved from >100 two weeks ago to 80 today; improved Will continue with levothyroxine Likely recheck in 4 weeks (5) Hypertension: Qualifiers: Hypertension type: essential hypertension Qualified Code(s): I10 - Essential (primary) hypertension Code(s): I10 - Essential (primary) hypertension Status: Chronic Assessment and Plan: Amlodipine was stopped at her last hospitalization, but blood pressures are creeping up. BP improved since admission, but still elevated, likely due to IVF (for rhabdo). 150s sys today Amlodipine resumed during stay; will continue after discharge DS: Summary Hospital Course Reason for hospitalization: Unresponsive, rhabdomyolysis Hospital Course: Patient is a 84 yo F with history of hypertension and hypothyroidism who presented to the ED via EMS from [facility] on 03/09 for evaluation after reportedly being found unresponsive in her wheelchair outdoors. Upon EMS arrival to [place], she was back to being awake and alert; she was found to be at her baseline mentation at arrival to ED and answering questions appropriately. She did not recall the episode. In the ED she was shown to have rhabdomyolysis. Patient admitted under this setting and for unresponsive episode. Please see H&P for further details. Presenting VS: Temp Pulse Resp BP Pulse Ox 98 F 58 L 12 124/43 L 97 03/09/20 11:13 03/09/20 11:13 03/09/20 11:13 03/09/20 11:13 03/09/20 11:13 Presenting Pertinent labs: CK 1009. Serial troponin <0.012. TSH 80.2 (>100 on 02/25, improvement). Covid testing negative for placement. CBC, coag, chemistry, UA otherwise unremarkable Micro: UCx negative Imaging: Chest X-Ray 03/09/20 12:36 Impression: 1: Small left pleural effusion. Head CT 03/09/20 12:44 IMPRESSION: 1. No acute intracranial process. 2. Stable appearance of prominent periventricular predominant white matter hypoattenuation consistent with chronic small vessel ischemic disease. Carotid Doppler Study 03/10/20 11:48 IMPRESSION: 1. <50% stenosis in the right internal carotid artery. 2. <50% stenosis in the left internal carotid artery. Echo 03/10/20 Summary 1. Normal
[2020-03-12 14:45] VITALS: TEMP 36.8
[2020-03-29 10:44] LABS: Glucose Point of Care 170 (65-105)
== END 2020-03-12 14:27 | DRG 948 ==
LOC: ANHED 13:43 → ANH3MED 14:19
PROVIDERS: Family Medicine; Physician Assistant; Admitting Provider Internal Medicine; Emergency Provider Emergency Medicine; Visit Provider Family Medicine
DX: R41.82 Altered mental status, unspecified (principal); M62.82 Rhabdomyolysis; D64.9 Anemia, unspecified; E03.9 Hypothyroidism, unspecified; I10 Essential (primary) hypertension; R00.1 Bradycardia, unspecified; R29.6 Repeated falls; Z11.59 Encounter for screening for other viral diseases
CPT/HCPCS: 36415; 51701; 70450; 71045; 72125; 80048; 80053; 81001; 82550; 83735; 84439; 84443; 84484; 85025; 85610; 85730; 87086; 87088; 87635; 93005; 93306; 93880; 96360; 96361; 97110; 97161; 97165; 97530; 97535; 99285; A9270; C9803; G0378; J7030; U0003

== ENCOUNTER 2020-03-17 17:20 | Inpatient (IN) | payer MEDICARE, OTHER, SELFPAY ==
[2020-03-17] VITALS (20 sets, daily range): BP systolic 95–216; BP diastolic 51–103; PULSE 65–89; RESP 14–34; TEMP 36.6; O2SAT 94–100
--- NOTE | 2020-03-17 | ECG_ITS ---
Measurements Intervals [place] Rate: 79 P: 86 [place]: 205 QRS: 84 QRSD: 82 T: 66 QT: 394 QTc: 452 Interpretive Statements SINUS RHYTHM CANNOT RULE OUT SEPTAL INFARCT, AGE INDETERMINATE NONSPECIFIC T-WAVE ABNORMALITY- INF/LAT LEADS BASELINE ARTIFACT- I, II, III, AVL, V1-V2, V4 ABNORMAL ECG Electronically Signed On 03-18-2020 6:54:33 CDT by Isidro Kearns D.O.
--- NOTE | ~2020-03-17 | XR_ITS ---
EXAMINATION: XR abdomen NG/feed tube insert INDICATION: Nasogastric tube insertion TECHNIQUE: Portable AP KUB-NG at 1744 hours COMPARISON: 11/24/2007 FINDINGS: The nasogastric tube is in the stomach. The visualized lungs are without acute abnormality. No dilated loops of bowel are seen. IMPRESSION: 1. Nasogastric tube in the stomach. Reviewed, dictated and finalized at location A.
--- NOTE | ~2020-03-17 | MR_ITS ---
EXAMINATION: MR brain/brain stem wo/w con DATE: 03/19/2020 16:20 INDICATION: Unresponsiveness. TECHNIQUE: Magnetic resonance imaging (MRI) of the brain and brainstem was performed without and with 8 mL MultiHance intravenous contrast. Sequences included sagittal and axial T1-weighted FSE, axial d iffusion-weighted FS EPI, axial T2*-weighted GRE, axial T2-weighted FLAIR Propeller, and axial T2-tyler ghted Propeller. Postcontrast sequences included axial and coronal T1-weighted FSE. Apparent diffusio n coefficient (ADC) maps were created. COMPARISON: Head CT 03/17/2020 FINDINGS: There are bilateral acute infarcts involving the moffett matter of the frontal, parietal, occi pital, and temporal lobes, worst in the watershed regions. There are acute infarcts in right caudate nucleus and right lentiform nucleus. There is an acute infarct in right cerebellum. There are scatter ed areas of nonspecific increased T2-weighted signal intensity in the cerebral white matter, deep gra y matter, and marianne. There is no intracranial hemorrhage or abnormal mass lesion. The ventricles are n ormal in size. There is mild mucosal thickening in the ethmoid sinuses. The orbits are normal. The ma stoid air cells are normal. IMPRESSION: 1. Widespread acute infarcts in the brain, likely anoxic brain injury. 2. Extensive nonspecific cerebral white matter disease and disease of the deep moffett nuclei and marianne, which likely represents chronic small vessel ischemic disease. Reviewed, dictated and finalized at location E. IMPRESSION: 1. Widespread acute infarcts in the brain, likely anoxic brain injury. 2. Extensive nonspecific cerebral white matter disease and disease of the deep moffett nuclei and marianne, which likely represents chronic small vessel ischemic dis ease.
--- NOTE | ~2020-03-17 | XR_ITS ---
EXAMINATION: XR chest ET placement INDICATION: Endotracheal tube insertion TECHNIQUE: Portable AP chest at 1743 hours COMPARISON: 03/09/2020 FINDINGS: The endotracheal tube ends approximately 3.5 cm above the richard. The nasogastric tube is f ollowed as far as the stomach. Its tip is beyond the inferior margin of the radiograph. The lungs are hyperinflated but free of acute opacities. There is no pleural effusion or pneumothorax. The heart s ize is normal. Calcified atherosclerosis is noted. IMPRESSION: 1. Hyperinflation without acute cardiopulmonary abnormality. 2. Endotracheal and nasogastric tubes in adequate position. Reviewed, dictated and finalized at location A.
--- NOTE | ~2020-03-17 | CT_ITS ---
EXAMINATION: CTA brain carotid DATE: 03/17/2020 20:24 INDICATION: Unresponsive episode TECHNIQUE: Computed tomographic angiography (CTA) of the head was performed without and with 100 mL O mnipaque-350 intravenous contrast. CTA of the neck was performed with intravenous contrast. The dose- length product was 1062.64 mGy-cm. Maximum intensity projection and volume rendered 3D-reconstruction s were created by the technologist on a separate workstation. Automated exposure control and iterativ e reconstruction technique were employed. COMPARISON: 1751 hours FINDINGS: HEAD CTA: There is no acute intraparenchymal hemorrhage. No evidence of mass lesion. No evidence of a cute infarction. There is mild periventricular and subcortical hypodensity probably related to small vessel ischemic disease. There is mild prominence of the sulci and ventricles related to cerebral atr ophy. Intracranial calcified cerebral atherosclerosis is noted. There are no extra-axial collections. There is no mass effect or midline shift. The orbits and soft tissues are unremarkable. There is mil d mucosal thickening of the paranasal sinuses. There is no significant stenosis of the basilar artery or posterior cerebral arteries. There is no si gnificant stenosis of the intracranial internal carotid arteries or the anterior or middle cerebral a rteries. The anterior communicating artery and posterior communicating arteries are normal. There is no aneurysm. NECK CTA: The thyroid gland is unremarkable. The submandibular and parotid glands are symmetric. Ther e is no lymphadenopathy. There are no masses identified. The airway is unremarkable. There are no oss eous abnormalities. The superior mediastinum is unremarkable. Endotracheal and nasogastric tubes are noted. There is scarring in the lung apices. Moderate to severe cervical spondylosis is noted. There is 33% stenosis of the proximal right internal carotid artery relative to normal distal artery lumen diameter (NASCET criteria). There is 26% stenosis of the proximal left internal carotid artery relative to normal distal artery lumen diameter. There is mild osteoarthritis at the origin of the le ft subclavian artery. IMPRESSION: 1. No acute intracranial abnormality. Normal head CTA. 2. 33% stenosis of the proximal right internal carotid artery relative to normal distal artery lumen diameter (NASCET criteria). 3. 26% stenosis of the proximal left internal carotid artery relative to normal distal artery lumen d iameter. Reviewed, dictated and finalized at location A. IMPRESSION: 1. No acute intracranial abnormality. Normal head CTA. 2. 33% stenosis of the proximal right internal carotid artery relative to jarad l distal artery lumen diameter (NASCET criteria). 3. 26% stenosis of the proximal left internal carotid artery relative to normal distal artery lumen diameter.
--- NOTE | ~2020-03-17 | MR_ITS ---
EXAMINATION: MR cervical spine wo/w con DATE: 03/19/2020 16:23 INDICATION: Bilateral upper extremity weakness. TECHNIQUE: Magnetic resonance imaging (MRI) of the cervical spine was performed without and with 8 mL MultiHance intravenous contrast. Sequences included sagittal and axial T2-weighted FSE, sagittal STI R FSE, and sagittal and axial T1-weighted FSE. Postcontrast sequences included sagittal and axial T1- weighted FS FSE. COMPARISON: None FINDINGS: Motion artifact is noted. Vertebral body heights are normal. There is moderately decreased disc height at C4-C5, C5-C6, and C6-C7. 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 There is edema and enhancement of the interspinous ligaments from C4-C5 through C6-C7, con sistent with sprains. There is increased T2-weighted signal intensity in the spinal cord from C4-C5 t hrough C6-C7, consistent with edema versus myelomalacia. The following disc levels are specifically d iscussed: C2-C3: The disc does not extend beyond the endplate margin. There is no uncovertebral joint osteoarth ritis. There is mild bilateral facet joint osteoarthritis. There is no neural foraminal stenosis. The re is no central canal stenosis. C3-C4: The disc is bulging. There is moderate bilateral uncovertebral joint osteoarthritis. There is mild right and moderate left facet joint osteoarthritis. There is moderate right and severe left neur al foraminal stenosis. There is mild central canal stenosis. C4-C5: The disc is bulging. There is severe bilateral uncovertebral joint osteoarthritis. There is mo derate bilateral facet joint osteoarthritis. There is severe bilateral neural foraminal stenosis. The re is severe central canal stenosis with ventral and dorsal indentation of the spinal cord. C5-C6: The disc is bulging. There is severe bilateral uncovertebral joint osteoarthritis. There is no facet joint osteoarthritis. There is severe bilateral neural foraminal stenosis. There is severe camila tral canal stenosis with ventral and dorsal indentation of the spinal cord. C6-C7: The disc is bulging. There is severe bilateral uncovertebral joint osteoarthritis. There is no facet joint osteoarthritis. There is moderate bilateral neural foraminal stenosis. There is mild camila tral canal stenosis with ventral indentation of the spinal cord. C7-T1: There is a central extrusion. There is mild right and severe left uncovertebral joint osteoart hritis. There is severe bilateral facet joint osteoarthritis. There is mild right and severe left ash ral foraminal stenosis. There is mild central canal stenosis. IMPRESSION: 1. Severe cervical spondylosis. 2. Abnormal signal in the spinal cord from C4-C5 through C6-C7, consistent with edema versus myelomal acia. 3. Edema of the interspinous ligaments from C4-C5 through C6-C7, consistent with sprains. Reviewed, dictated and finalized at location E. IMPRESSION: 1. Severe cervical spondylosis. 2. Abnormal signal in the spinal cord from C4-C5 through C6-C7, consistent with edema versus myelomalacia. 3. Edema of the interspinous ligaments from C4-C5 through C6-C7, consistent wit h sprains.
--- NOTE | ~2020-03-17 | CT_ITS ---
EXAMINATION: CT brain wo con INDICATION: Altered mental status, history of subarachnoid hemorrhage COMPARISON: 03/09/2020 TECHNIQUE: Standard unenhanced head CT. The dose-length product (DLP) was 605.33 mGy-cm. The mA was a djusted according to patient size. Iterative reconstruction technique was employed. FINDINGS: There is no acute intraparenchymal hemorrhage. No evidence of mass lesion. No evidence of a cute infarction. There is mild periventricular and subcortical hypodensity probably related to small vessel ischemic disease. There is mild prominence of the sulci and ventricles related to cerebral atr ophy. Intracranial calcified cerebral atherosclerosis is noted. There are no extra-axial collections. There is no mass effect or midline shift. The orbits and soft tissues are unremarkable. There is mi ld mucosal thickening of the paranasal sinuses. IMPRESSION: 1. No acute intracranial abnormality. 2. Age related findings. As per stroke protocol, I called these results to the Emergency Department, and discussed with Dr. Jessika Youngblood MD at 03/17/2020 18:06 CDT. Reviewed, dictated and finalized at location A. IMPRESSION: 1. No acute intracranial abnormality. 2. Age related findings. As per stroke protocol, I called these results to the Emergency Department, and discussed with Dr. Mirlande Youngblood MD at 03/17/2020 18:06 CDT.
--- NOTE | ~2020-03-17 | XR_ITS ---
XR chest 1V portable DATE: 03/20/2020 06:29 INDICATION: Respiratory difficulties TECHNIQUE: Portable upright AP chest on 03/20/2020 at 0559 hours COMPARISON: 03/19/2020 portable AP chest at 0534 hours FINDINGS: Bilateral hyperinflation. No pulmonary consolidation is evident. Heart size is within jarad l range. There is extensive thoracic and abdominal aortic calcification. Great vessel calcification. Diffuse osteopenia. IMPRESSION: Bilateral hyperinflation; no active pulmonary disease Extensive atherosclerosis Prominent diffuse osteopenia Reviewed, dictated and finalized at location A.
--- NOTE | ~2020-03-17 | XR_ITS ---
XR chest 1V portable DATE: 03/19/2020 06:13 INDICATION: Mechanical ventilation TECHNIQUE: Portable AP chest on 03/19/2020 at 0534 hours COMPARISON: 03/17/2020 portable AP chest FINDINGS: ET and NG tubes been removed since 03/17/2020. Bilateral hyperinflation, suggesting COPD. There is mild discoid atelectasis or scarring in the lower lungs; otherwise no pulmonary infiltrate or consolidation, pleural effusion or pulmonary vascular co ngestion or pneumothorax is evident. There is bilateral apical capping. Heart size is within normal limits. There is extensive thoracic and abdominal aortic calcification. Prominent diffuse osteopenia. IMPRESSION: Bilateral hyperinflation suggesting COPD Mild discoid atelectasis or scarring in the lower lungs; otherwise no pulmonary consolidation Prominent diffuse osteopenia Extensive atherosclerotic calcification of the aorta Reviewed, dictated and finalized at location A.
--- NOTE | 2020-03-17 17:24 | PC.NURSE ---
10 MG ETOMIDATE 100 MG SUCCINOCHOLINE GIVEN IVP AT THE REQUEST OF [facility] BY VENKATESH EAGLE FOR SEDATION R/T INTUBATION.
--- NOTE | 2020-03-17 17:31 | ED.NEUROSD ---
HPI - Neuro Symptoms/Deficit General Chief Complaint: Suspected CVA <Mirlande Youngblood MD - Last Filed: 03/21/20 07:09> Stated Complaint: code cva <Mirlande Youngblood MD - Last Filed: 03/21/20 07:09> Time Seen by Provider: 03/17/20 17:25 <Mirlande Youngblood MD - Last Filed: 03/21/20 07:09> History of Present Illness HPI Narrative: Patient presents via EMS for acute change in mental status. A week ago she was diagnosed with a subarachnoid hemorrhage. She was active today and then slumped and had no response. She arrives without any meaningful movement, no speech, not following directions, flaccid arms and legs. No eye contact, pupils fixed. She is breathing minutes very shallow. She has a pulse. She is supposed to be full code. <Mirlande Youngblood MD - Last Filed: 03/21/20 07:09> Onset (ago): hour(s) <Mirlande Youngblood MD - Last Filed: 03/21/20 07:09> Timing confirmed by: caregiver <Mirlande Youngblood MD - Last Filed: 03/21/20 07:09> Severity: severe <Mirlande Youngblood MD - Last Filed: 03/21/20 07:09> Relieving factors: none <Mirlande Youngblood MD - Last Filed: 03/21/20 07:09> Context: sudden onset and other (Recent subarachnoid hemorrhage) <Mirlande Youngblood MD - Last Filed: 03/21/20 07:09> On Anticoagulants: No <Mirlande Youngblood MD - Last Filed: 03/21/20 07:09> Related Data Allergies/Adverse Reactions: Allergies Allergy/AdvReac Type Severity Reaction Status Date / Time No Known Allergies Allergy Verified 03/17/20 17:40 <Mirlande Youngblood MD - Last Filed: 03/21/20 07:09> Review of Systems Review of Systems: Narrative: Review of systems is not available since the patient is not speaking and no family members are present. <Mirlande Youngblood MD - Last Filed: 03/21/20 07:09> [facility] Past Medical History Medical History: Medical History Chronic anemia Depression Hypertension Hypothyroid <Mirlande Youngblood MD - Last Filed: 03/21/20 07:09> Surgical History Surgical History: Surgical History History of appendectomy <Mirlande Youngblood MD - Last Filed: 03/21/20 07:09> Family History Family History: Family History Mother Heart attack Father Throat cancer <Mirlande Youngblood MD - Last Filed: 03/21/20 07:09> Social History Social History: Social History Social History: The patient lives in her own home in [place], but is currently doing rehab at [place] since early February 2020. She is originally from [place] outside of [facility] and she moved to the [facility] after she met a soldier in [place]. She has 1 daughter who lives in [place], it does not sound as though they keep in much contact. She has smoked for 62 years, typically 5 or 6 cigarettes a day. She denies alcohol and illicit substance abuse. Her around 1997. She designates her [id number] Linda Maldonado as her surrogate decision maker. Code status: DNR Smoking packs per day: 0.5 Smoking cigarettes per day: 10.0 Years smoked: 62 Smoking pack-years: 31.00 Smoking status: Current every day smoker Tobacco type: cigarettes Alcohol intake: former Substance use: never Gender identity (if verbalized by the patient): Female Sexual Orientation (if Verbalized by the Patient): Straight or Heterosexual Spiritual care concerns: No <Mirlande Youngblood MD - Last Filed: 03/21/20 07:09> Exam Narrative: Exam Narrative: GENERAL: Cachectic woman, with no spontaneous movement, HEAD: Normocephalic, bruising and scab along the left forehead. EYES: Pupils fixed ENT: Nares clear, no rhinorrhea or epistaxis. Mucous membranes moist. Dentures present NECK: Supple. CHEST: Clear to auscultation. No respiratory distress. HEART: Regular rate and rhythm. No murmur heard. Normal peripheral p
[2020-03-17 17:36] LABS: Basophils Absolute Auto 0.1 K/mm3 (0.0-0.1); Basophils Percent Auto 0.6 % (0.2-1.2); Eosinophils Percent Auto 0.2 % (0-4.4); Hematocrit 36.3 % (37.0-47.0); Hemoglobin 12.1 g/dL (12.0-15.0); Immature Granulocyte Absolute 0.16 K/mm3 (0.00-0.031); Immature Granulocyte Percent A 1.2 % (0-0.5); Lymphocytes Percent Auto 14.6 % (18.3-44.2); Mean Corpuscular HGB Conc 33.3 g/dl (32-36); Mean Corpuscular Hemoglobin 33.7 pg (26-34); Mean Corpuscular Volume 101.1 fl (80-100); Mean Platelet Volume 9.6 fl (7.4-10.4); Monocytes Absolute Auto 0.8 K/mm3 (0.1-0.6); Monocytes Percent Auto 6.1 % (2.6-8.5); Neutrophils Percent Auto 77.3 % (45.5-73.1); Platelet Count Result 266 k/mm3 (150-375); Red Blood Count 3.59 M/mm3 (4.2-5.4); Red Cell Distribution Width 15.4 % (11.5-14.5)
[2020-03-17] MEDS: PROPOFOL IV EMULSION 100 ML 5 MG (17:45)
[2020-03-17 17:46] LABS: INR 1.1; Prothrombin Time 14.3 Seconds (11.1-14.7)
[2020-03-17 17:47] LABS: Partial Thromboplastin Time 27.7 SECONDS (22.3-36.8)
[2020-03-17 17:48] LABS: Anion Gap 15.9 mmol/L (7-16); Blood Urea Nitrogen 29 mg/dL (7-17); Carbon Dioxide 28 mmol/L (22-30); Chloride 98 mmol/L (98-107); Estimated Glomerular Filt Rate 48; Glucose 190 mg/dL (65-105); Potassium 5.9 mmol/L (3.4-5.0); Sodium 136 mmol/L (137-145)
[2020-03-17 17:59] LABS: Troponin I < 0.012 ng/mL (0.000-0.034)
--- NOTE | 2020-03-17 18:51 | PC.NURSE ---
1725 PT INTUBATED WITH 7MM TUBE, ED RESPIRATORY AT BEDSIDE TO ASSIST, 22 @ THE LIP. 1737 16 FR OG TUBE PLACED 60 @ THE LIP 1740 XRAY COMPLETE FOR ET AND OG TUBE PLACEMENT 1745 VERBAL ORDER FROM ERP DK FOR PROPOFOL TO BEGIN AT 5MCG/HR FOR SEDATION. [address] 1809 PROPOFOL INCREASED TO 10 1810 ERP DK AT BEDSIDE TO ASSIST W/ CHEN INSERTION, STATES THAT CHEN INSERTION WILL NOT BE POSSIBLE DUE TO PT MIGRATED URETHERA, VERBAL ORDER NOT TO PLACE CHEN AT THIS TIME. 1830 PROPOFOL INCREASED TO 15.
--- NOTE | 2020-03-17 19:05 | PC.NURSE ---
PT REPORT GIVEN TO VENKATESH COLE AT THIS TIME, SHE HAS ASSUMED PT CARE.
[2020-03-17] MEDS: SODIUM CHLORIDE 0.9% IV 1,000 ML 500 ML IV CONT (19:07)
[2020-03-17 19:27] LABS: Base Excess ABG 1.9 mEq/l (+/-2.0); Carboxyhemoglobin 0.2 % THb (0-2.0); Device VENTILATOR; Fractional Inspired Oxygen 100 %; HCO3 ABG 24.8 mEq/l (22.0-26.0); Methemoglobin ABG 0.2 %THb (0-1.5); Modified Allen's Test Pass; Oxygen Content ABG 18.1 %vol (16.0-22.0); Oxygen Saturation ABG 99.9 % (95.0-100.0); Oxyhemoglobin 98.7 % THb (90.0-100.0); PO2 FiO2 Ratio Arterial Blood 4.91 %; Reduced Hemoglobin 0.9 %THb (0-5.0); Site Drawn LEFT RADIAL; Total Hemoglobin 12.1 g/dL (12.0-18.0); pH ABG 7.493 (7.350-7.450)
[2020-03-17 19:28] LABS: Arterial Blood Gas PEEP 5 cmH2O; Arterial Blood Gas Tidal Volume 400 ml; Arterial Blood Gas Vent Mode CMV; Arterial Blood Gas Ventilator rate 16 /MIN
--- NOTE | 2020-03-17 19:57 | PC.NURSE ---
pt daughter at bedside. Dr. Boyd aware.
--- NOTE | 2020-03-17 20:30 | PC.NURSE ---
Pt has been back from receiving CTA, daughter now in room standing next to Pt holding her hand and sobbing. Awaiting CTA results. Propofol and NS continue to run as ordered.
[2020-03-17] MEDS: SODIUM CHLORIDE 0.9% IV 1,000 ML 125 ML IV CONT (21:34)
--- NOTE | 2020-03-17 23:37 | PM.IMHP ---
H&P: HPI History of Present Illness Chief complaint: Unresponsive episode Narrative: Date and time of patient contact: 03/18/2020 at 1:00 a.m. Kayode Arroyo is a 84 year old female with a past medical history of hypothyroidism with a TSH of 100 earlier this month,multiple recent hospitalizations for falls, and chronic hypertension who presented to the ER via EMS from [facility] due to unresponsive episode. The patient had been admitted to hospital on February 24 and discharged on February 27 due to a fall with a left clavicular fracture and untreated hypothyroidism due to noncompliance with medications (initial TSH greater than 100 repeat TSH of 80.) [facility]. She was readmitted to the hospital March 10 through March 12 due to suspected syncopal episode , intermittent bradycardia and rhabdomyolysis. She was discharged with plan for 30 day event monitor. During 1 of her recent hospitalizations it had a laceration to her forehead and has sutures in place and her left forehead. Evidently the patient was found unresponsive in her room at the skilled nursing. Her last known normal had been 1 hour prior to arriving to the hospital. The patient was reportedly found slumped over. She arrived to the ER without meaningful movement or speech. She was not following directions and had flaccid arms and legs. Her pupils were reportedly fixed. She was breathing 34 times a minute with shallow respirations. The patient was emergently intubated in the ER Around 5:40 p.m. after administration of succinylcholine and etomidate. according to the ER documentation around 6:40 p.m. patient was awake on the ventilator and moving all of her extremities. The patient was initiated on propofol at that time. The patient's daughter as well as the patient's POA were both contacted by ER staff. The patient's code status was changed to DNR. The patient had already been intubated. the family agreed to leave the patient intubated for the time being. Patient was admitted to the ICU for further care. On arrival to the ICU patient was hypothermic with a core temperature of 95?. Patient was placed under a Carmelo Hugger. NG tube was placed to low intermittent suction at which time a large amount of rust colored gastric contents was aspirated from the stomach. The patient was grimacing and pulling away from painful stimuli. A Oliver catheter was placed. Source of information: Past medical records and ER records. Review of Systems Review of Systems: ROS unobtainable: Yes unobtainable due to endotracheal tube PMFSH Past Medical History Medical History (Updated 03/18/20 @ 02:03 by Blanca Oliver DO) Chronic anemia Depression Hypertension Hypothyroid Surgical History Surgical History History of appendectomy Family History Family History Mother Heart attack Father Throat cancer Social History Social History (Updated 03/17/20 @ 23:41 by Blanca Oliver DO) Social History: The patient lives in her own home in [place], but is currently doing rehab at [facility] since early February 2020. She is originally from [place] outside of [facility] and she moved to the [place] after she met a soldier in [place]. She has 1 daughter who lives in [place], it does not sound as though they keep in much contact. She has smoked for 62 years, typically 5 or 6 cigarettes a day. She denies alcohol and illicit substance abuse. Her around 1997. She designates her [id number] Linda Maldonado as her surrogate decision maker. Code status: DNR Smoking packs per day: 0.5 Smoking cigarettes per day: 10.0 Years smoked: 62 Smoking pack-years: 31.00 Smoking status: Former smoker Alcohol intake: never Substance use: never Gender identity (if verbalized by the p
[2020-03-18] VITALS (35 sets, daily range): BP systolic 117–172; BP diastolic 60–76; PULSE 55–86; RESP 11–100; TEMP 35.4–37.3; O2SAT 97–100; BMI 21.9; BMI 17.9
[2020-03-18] MEDS: PROPOFOL IV EMULSION 100 ML 25 MG IV CONT (00:35)
[2020-03-18] MEDS: SODIUM CHLORIDE 0.9% IV 1,000 ML 125 ML IV CONT ×3 (01:30→20:09)
--- NOTE | 2020-03-18 01:45 | PC.NURSE ---
Pump continued to fill the line with air, clearing out the propofol from line which resulted in an error. 1ml of propofol aspirated with 5mL syringe and left attached to pump. This nurse explained to ICU nurse why the need for the syringe having propfol in it and its position upon arrival to the floor. Pt tolerated transport to the floor well, vitals in route according to monitor 138/73, 100% and a HR of 55. Propofol decreased to 25mL/ hr due to pt RASS score and drop in BP.
[2020-03-18 04:34] LABS: Hematocrit 32.2 % (37.0-47.0); Hemoglobin 11.3 g/dL (12.0-15.0); Mean Corpuscular HGB Conc 35.1 g/dl (32-36); Mean Corpuscular Hemoglobin 33.6 pg (26-34); Mean Corpuscular Volume 95.8 fl (80-100); Mean Platelet Volume 9.4 fl (7.4-10.4); Platelet Count Result 243 k/mm3 (150-375); Red Blood Count 3.36 M/mm3 (4.2-5.4); Red Cell Distribution Width 14.9 % (11.5-14.5); White Blood Count 11.4 K/mm3 (4.5-10.0)
[2020-03-18 04:47] LABS: Alveolar/Arterial O2 Gradient 77.4 mmHg; Base Excess ABG 0.1 mEq/l (+/-2.0); Fractional Inspired Oxygen 35 %; HCO3 ABG 20.4 mEq/l (22.0-26.0); Oxygen Content ABG 16.9 %vol (16.0-22.0); Oxygen Saturation ABG 99.2 % (95.0-100.0); Oxyhemoglobin 97.8 % THb (90.0-100.0); PO2 ABG 146.5 mmHg (80.0-100.0); PO2 FiO2 Ratio Arterial Blood 4.19 %; Total Hemoglobin 12.1 g/dL (12.0-18.0)
[2020-03-18 04:48] LABS: Anion Gap 13.4 mmol/L (7-16); Blood Urea Nitrogen 19 mg/dL (7-17); Calcium 9.3 mg/dL (8.4-10.2); Carbon Dioxide 24 mmol/L (22-30); Chloride 105 mmol/L (98-107); Estimated CRCL calculation 38 ml/min; Estimated Glomerular Filt Rate > 60; Glucose 117 mg/dL (65-105); Potassium 3.4 mmol/L (3.4-5.0); Sodium 139 mmol/L (137-145)
[2020-03-18 04:52] LABS: Arterial Blood Gas PEEP 5 cmH2O; Arterial Blood Gas Tidal Volume 400 ml; Arterial Blood Gas Vent Mode CMV; Arterial Blood Gas Ventilator rate 16 /MIN; Device VENTILATOR; Modified Allen's Test Pass; PCO2 ABG 22.1 mmHg (35.0-45.0); Site Drawn LEFT RADIAL; pH ABG 7.583 (7.350-7.450)
--- NOTE | 2020-03-18 08:03 | WPDCNINT ---
Assessment and Plan Assessment and plan (1) Acute encephalopathy: Code(s): G93.40 - Encephalopathy, unspecified Status: Acute Assessment and Plan: Suspect related to significant hypothyroidism, though cardiac arrhythmia is still a possibility. Pt was supposed to be on an event monitor after last hospital admission for unresponsiveness. CT head and CTA H&N negative for acute findings. Improved and pt is following commands. (2) Hypothyroidism: Code(s): E03.9 - Hypothyroidism, unspecified Status: Acute Assessment and Plan: Continue IV levothyroxine. Repeat TSH in 2-4 weeks. (3) Acute respiratory failure: Code(s): J96.00 - Acute respiratory failure, unspecified whether with hypoxia or hypercapnia Status: Acute Assessment and Plan: Pt was intubated for airway protection. SAT/SBT this AM and extubate if passes. (4) Hyperkalemia: Code(s): E87.5 - Hyperkalemia Status: Acute Assessment and Plan: Resolved. Additional Plan Critical care time: 40 minutes. Roll Tension Tester Consult Note Consult date: 03/18/20 Time Seen: 09:30 HPI: Kayode Arroyo is a 84 year old female with a history of hypothyroidism, falls, and HTN who presented to the ED from her [facility] due to unresponsiveness. She was intubated for airway protection in the ED and admitted to the ICU for further management. All history is obtained from the Hospitalist H&P as she is currently on mechanical ventilation. Per the H&P: Kayode Arroyo is a 84 year old female with a past medical history of hypothyroidism with a TSH of 100 earlier this month,multiple recent hospitalizations for falls, and chronic hypertension who presented to the ER via EMS from [facility] due to unresponsive episode. The patient had been admitted to hospital on February 24 and discharged on February 27 due to a fall with a left clavicular fracture and untreated hypothyroidism due to noncompliance with medications (initial TSH greater than 100 repeat TSH of 80.) [facility]. She was readmitted to the hospital March 10 through March 12 due to suspected syncopal episode , intermittent bradycardia and rhabdomyolysis. She was discharged with plan for 30 day event monitor. During 1 of her recent hospitalizations it had a laceration to her forehead and has sutures in place and her left forehead. Evidently the patient was found unresponsive in [facility]. Her last known normal had been 1 hour prior to arriving to the hospital. The patient was reportedly found slumped over. She arrived to the ER without meaningful movement or speech. She was not following directions and had flaccid arms and legs. Her pupils were reportedly fixed. She was breathing 34 times a minute with shallow respirations. The patient was emergently intubated in the ER Around 5:40 p.m. after administration of succinylcholine and etomidate. according to the ER documentation around 6:40 p.m. patient was awake on the ventilator and moving all of her extremities. The patient was initiated on propofol at that time. The patient's daughter as well as the patient's POA were both contacted by ER staff. The patient's code status was changed to DNR. The patient had already been intubated. the family agreed to leave the patient intubated for the time being. Patient was admitted to the ICU for further care. On arrival to the ICU patient was hypothermic with a core temperature of 95?. Patient was placed under a Carmelo Hugger. NG tube was placed to low intermittent suction at which time a large amount of rust colored gastric contents was aspirated from the stomach. The patient was grimacing and pulling away from painful stimuli. A Oliver catheter was placed. Review of Systems Review of Systems: ROS unobtainable: Yes unobtainable due to endotracheal tube PMFSH Past Medical History Medical History (Updated 03/18
[2020-03-18] MEDS: LEVOTHYROXINE SODIUM INJ 100 MCG/5 ML VIAL 25 MCG IV PUSH (08:13)
[2020-03-18] MEDS: PANTOPRAZOLE SODIUM IV 40 MG VIAL IV PUSH ×2 (08:14→20:10)
[2020-03-18 14:30] LABS: Alveolar/Arterial O2 Gradient 38.6 mmHg; Carboxyhemoglobin 0.2 % THb (0-2.0); Fractional Inspired Oxygen 30 %; HCO3 ABG 22.7 mEq/l (22.0-26.0); Methemoglobin ABG 0.2 %THb (0-1.5); Oxygen Content ABG 16.7 %vol (16.0-22.0); Oxyhemoglobin 97.5 % THb (90.0-100.0); PO2 ABG 138.9 mmHg (80.0-100.0); PO2 FiO2 Ratio Arterial Blood 4.63 %; Reduced Hemoglobin 2.1 %THb (0-5.0); pH ABG 7.483 (7.350-7.450)
[2020-03-18 14:31] LABS: Arterial Blood Gas Minute Volume 0 LPM; Arterial Blood Gas PEEP 5 cmH2O; Arterial Blood Gas Pressure Support 8 cmH2O; Arterial Blood Gas Tidal Volume 0 ml; Arterial Blood Gas Vent Mode SPONTANEOUS; Arterial Blood Gas Ventilator rate 0 /MIN; Device VENTILATOR; Modified Allen's Test Pass; Peak Inspiratory Pressure 0 cmH2O; Site Drawn LEFT RADIAL
--- NOTE | 2020-03-18 16:31 | PM.IMPN ---
Progress Note: A&P Assessment and Plan (1) Unresponsive episode: Code(s): R41.89 - Other symptoms and signs involving cognitive functions and awareness Status: Acute Assessment and Plan: Etiology unclear but has had previous hospitalizations for this. Echo eralier this month showing noconcerning findings. Brain CT this admission showing no acute findings. Head/Neck CTA also showing brenda cute findings. Consider seizures. Will check EEG. Neuro consult. PT/OT. (2) Bilateral arm weakness: Code(s): R29.898 - Other symptoms and signs involving the musculoskeletal system Status: Acute Assessment and Plan: Patient with bilateral arm weakness but LE okay. CTA showing moderate to severe cervical spondylosis is noted. Brain CT showing no acute infarcts. Cervical spine CT 02/25/20 showing chronic mild vertebral body height loss at C4 and C5 and moderate cervical spondylosis. Etiology unclear - Don's paralysis? Neurology consulted. Consider MRI. (3) Hyperkalemia: Code(s): E87.5 - Hyperkalemia Status: Acute Assessment and Plan: Potassium 5.9 on admission. Not on medication to explain this. Potassium normal now. Continue to follow. (4) Acute renal injury: Code(s): N17.9 - Acute kidney failure, unspecified Status: Acute Assessment and Plan: Cr 1.1 on admission but normal now with IV fluids. UOP improving as well. Oliver catheter secured. (5) Acute respiratory failure: Code(s): J96.00 - Acute respiratory failure, unspecified whether with hypoxia or hypercapnia Status: Acute Assessment and Plan: Patient placed on mechanical ventilation on 03/17 and admistted to the ICU. Patient has been seen by the soil science technical officer and able to be extubated succesfully. Patient is now a DNR. Etiology unclear but respiratory failure related to the unresponsive episodes. No evidence of CO2 retention. (6) At risk for stress ulcer: Code(s): Z91.89 - Other specified personal risk factors, not elsewhere classified Status: Acute Assessment and Plan: The patient had some rust colored gastric secretions. Protonix 40 mg IV Q 12 ordered. Hgb 12 on admission and 11.3 today. Continue to monitor. (7) Hypothyroidism: Code(s): E03.9 - Hypothyroidism, unspecified Status: Acute Assessment and Plan: On 02/26/20, TSH>100 and discharged on Synthroid 50mcg. Repeat TSH 80 on 03/10/20. Only been 3 weeks since starting current dose. Will continue IV levothyroxine. Suspect she will need higher dose at some point. Subjective Date/time seen: 03/18/20 16:31 Interval history: 84yo female with depression and hypothyroidism sent in after having an unresponsive episode at the [facility]. Patient was found unresponsive in her room at the [facility]. She is awake but difficulty obtianing history. She was intubated in the ER but able to be extubated earlier today. Review of Systems Review of Systems: ROS unobtainable: Yes unobtainable due to mental status Exam Narrative: Exam Narrative: AF 172/60 71 15 100% 2L Gen - thin, frail female in NARD HEENT - healing left forehead laceration with old bruising noted left side of face Neck - supple, no masses Chest - clear anteriorly but inspiratory crackles in the flanks, nml RR CV - RRR S1/S2; Tele showing 7 beat run on NSVT o/w PVCs. Abd - Soft, +guarding, +BS - Oliver secured draining clear yellow urine Ext - No pedal edema Neuro - mildly obtunded. She is confused. LE strength intact but flaccid UE Skin - thin, cool Objective Data Vital Signs Vital Signs: Vital Signs - 24 hr 03/17/20 17:16 03/17/20 17:22 03/17/20 17:25 Temperature 97.8 F Pulse Rate 84 79 89 Respiratory Rate 34 H 23 H Blood Pressure 158/51 H 158/51 H Pulse Oximetry 94 100 100 03/17/20 17:34 03/17/20 17:45 03/17/20 18:00 Temperature Pulse Rate 75 80 69 Respiratory Rate 16 22
[2020-03-19] VITALS (12 sets, daily range): BP systolic 133–167; BP diastolic 45–62; PULSE 48–75; RESP 12–18; TEMP 36.3–36.9; O2SAT 95–100
[2020-03-19 04:09] LABS: Basophils Absolute Auto 0.1 K/mm3 (0.0-0.1); Basophils Percent Auto 0.4 % (0.2-1.2); Eosinophils Absolute Auto 0.1 K/mm3 (0-0.3); Eosinophils Percent Auto 0.8 % (0-4.4); Hematocrit 30.2 % (37.0-47.0); Hemoglobin 10.3 g/dL (12.0-15.0); Immature Granulocyte Absolute 0.04 K/mm3 (0.00-0.031); Immature Granulocyte Percent A 0.4 % (0-0.5); Lymphocytes Absolute Auto 1.53 K/mm3 (0.9-3.2); Lymphocytes Percent Auto 13.5 % (18.3-44.2); Mean Corpuscular HGB Conc 34.1 g/dl (32-36); Mean Corpuscular Hemoglobin 33.6 pg (26-34); Mean Corpuscular Volume 98.4 fl (80-100); Mean Platelet Volume 9.5 fl (7.4-10.4); Monocytes Percent Auto 8.8 % (2.6-8.5); Neutrophils Absolute Auto 8.6 K/mm3 (1.3-6.7); Neutrophils Percent Auto 76.1 % (45.5-73.1); Platelet Count Result 207 k/mm3 (150-375); Red Blood Count 3.07 M/mm3 (4.2-5.4); Red Cell Distribution Width 15.3 % (11.5-14.5); White Blood Count 11.3 K/mm3 (4.5-10.0)
[2020-03-19 04:28] LABS: Alveolar/Arterial O2 Gradient 49.7 mmHg; Base Excess ABG 1.7 mEq/l (+/-2.0); Fractional Inspired Oxygen 26 %; HCO3 ABG 25.3 mEq/l (22.0-26.0); Oxygen Content ABG 15.6 %vol (16.0-22.0); Oxygen Saturation ABG 97.5 % (95.0-100.0); Oxyhemoglobin 95.7 % THb (90.0-100.0); PCO2 ABG 36.2 mmHg (35.0-45.0); PO2 ABG 92.8 mmHg (80.0-100.0); PO2 FiO2 Ratio Arterial Blood 3.57 %; Total Hemoglobin 11.5 g/dL (12.0-18.0); pH ABG 7.462 (7.350-7.450)
[2020-03-19 04:29] LABS: Site Drawn LEFT RADIAL
[2020-03-19 04:30] LABS: Device NASAL CANNULA; Liters per Minute 1.5 LPM; Modified Allen's Test Pass
[2020-03-19 04:36] LABS: Alanine Aminotransferase 12 U/L (4-35); Albumin Level 3.7 g/dL (3.5-5.1); Alkaline Phosphatase 113 U/L (38-126); Anion Gap 8.3 mmol/L (7-16); Aspartate Amino Transferase 71 U/L (14-36); Bilirubin,Total 1.1 mg/dL (0.2-1.3); Blood Urea Nitrogen 10 mg/dL (7-17); CRP 8.3 mg/dL (<1.0); Calcium 8.6 mg/dL (8.4-10.2); Carbon Dioxide 26 mmol/L (22-30); Chloride 107 mmol/L (98-107); Creatine Kinase 734 U/L (30-135); Estimated CRCL calculation 40 ml/min; Estimated Glomerular Filt Rate > 60; Glucose 89 mg/dL (65-105); Magnesium 1.7 mg/dL (1.6-2.3); Phosphorus 2.8 mg/dL (2.5-4.5); Potassium 3.3 mmol/L (3.4-5.0); Sodium 138 mmol/L (137-145)
[2020-03-19] MEDS: SODIUM CHLORIDE 0.9% IV 1,000 ML 125 ML IV CONT (06:02)
[2020-03-19] MEDS: LEVOTHYROXINE SODIUM INJ 100 MCG/5 ML VIAL 25 MCG IV PUSH (06:17)
--- NOTE | 2020-03-19 08:40 | WPDINTPN ---
Progress Note: A&P Assessment and Plan (1) Acute encephalopathy: Code(s): G93.40 - Encephalopathy, unspecified Status: Acute Assessment and Plan: Suspect related to significant hypothyroidism, though cardiac arrhythmia is still a possibility. Pt was supposed to be on an event monitor after last hospital admission for unresponsiveness. CT head and CTA H&N negative for acute findings. Improved and pt is following commands. (2) Hypothyroidism: Code(s): E03.9 - Hypothyroidism, unspecified Status: Acute Assessment and Plan: Continue IV levothyroxine. Repeat TSH in 2-4 weeks. (3) Acute respiratory failure: Code(s): J96.00 - Acute respiratory failure, unspecified whether with hypoxia or hypercapnia Status: Acute Assessment and Plan: Pt was intubated for airway protection. Extubated successfully on 03/18. (4) Hyperkalemia: Code(s): E87.5 - Hyperkalemia Status: Acute Assessment and Plan: Resolved. (5) Depression: Code(s): F32.9 - Major depressive disorder, single episode, unspecified Status: Acute Assessment and Plan: Pt admits to feeling depressed but denies SI/HI. She notes that she had seen someone for this in the past but that it didn't work. Additional Plan Critical care time: 30 minutes. Subjective Date/time seen: 03/19/20 08:40 Pt was successfully extubated yesterday afternoon. She denies any complaints today besides feeling depressed. Review of Systems Review of Systems: All systems reviewed & are unremarkable except as noted in HPI and below (HPI) Exam Const: General: no acute distress Other: thin Eyes: Pupils: Equal, round and reactive pupils present Resp: Effort & Inspection: normal respiratory effort Auscultation: clear to auscultation bilaterally Cardio: Rate: regular rate Rhythm: regular rhythm GI: Inspection: non-distended Skin: Other: healing forehead laceration Neuro: Cranial nerves: Yes Equal, round and reactive pupils present Other: follows commands, moves BLE but not BUE, AAOx3 Objective Data Vital Signs Vital Signs: Vital Signs - 24 hr 03/18/20 10:00 03/18/20 10:20 03/18/20 10:26 Temperature Pulse Rate 74 81 69 Respiratory Rate 11 L Blood Pressure Pulse Oximetry 100 03/18/20 12:00 03/18/20 12:10 03/18/20 14:00 Temperature 37.1 C Pulse Rate 68 77 66 Respiratory Rate 12 Blood Pressure 166/74 H Pulse Oximetry 100 100 03/18/20 14:33 03/18/20 14:56 03/18/20 16:00 Temperature 36.9 C Pulse Rate 76 66 79 Respiratory Rate 14 17 Blood Pressure 160/62 H 152/67 H Pulse Oximetry 100 100 100 03/18/20 17:10 03/18/20 17:15 03/18/20 18:00 Temperature Pulse Rate 68 68 61 Respiratory Rate 17 Blood Pressure Pulse Oximetry 100 100 03/18/20 18:33 03/18/20 20:00 03/18/20 22:00 Temperature 36.2 C L 36.9 C 36.8 C Pulse Rate 71 62 55 L Respiratory Rate 15 14 12 Blood Pressure 172/60 H 155/60 H 165/68 H Pulse Oximetry 100 100 100 03/18/20 22:03 03/18/20 22:12 03/18/20 22:30 Temperature Pulse Rate 62 55 L 74 Respiratory Rate 16 Blood Pressure Pulse Oximetry 98 03/19/20 00:00 03/19/20 02:00 03/19/20 04:00 Temperature 36.8 C 36.6 C 36.4 C Pulse Rate 75 51 L 70 Respiratory Rate 16 12 14 Blood Pressure 134/52 L 133/45 L 149/56 H Pulse Oximetry 100 99 100 03/19/20 06:00 Temperature Pulse Rate 63 Respiratory Rate 14 Blood Pressure 140/58 L Pulse Oximetry 95 Intake/Output Intake/Output: Intake & Output 03/16/20 03/17/20 03/18/20 03/19/20 23:59 23:59 23:59 23:59 Intake Total 1099.8 2065.2 1000 Output Total 50 925 925 Balance 1049.8 1140.2 75 Meds/Results Medications: Active Medications Generic Name Dose Route Start Last Admin Trade Name Freq PRN Reason Stop Dose Admin Enoxaparin Sodium 40 mg 03/19/20 09:00 Lovenox SUB-Q DAILY MIREYA Sodium Chloride 1,000 mls @ 70 mls/hr 03/17/20 21:50 07
[2020-03-19] MEDS: MAGNESIUM SULF 2 GM/WATER 50ML 2 GM/50 ML BAG IVPB (10:06)
[2020-03-19] MEDS: ENOXAPARIN 40 MG/0.4 ML SYRINGE SUB-Q (10:07)
[2020-03-19] MEDS: PANTOPRAZOLE SODIUM IV 40 MG VIAL IV PUSH ×2 (10:09→20:30)
--- NOTE | 2020-03-19 12:38 | PM.IMPN ---
Progress Note: A&P Assessment and Plan (1) Unresponsive episode: Code(s): R41.89 - Other symptoms and signs involving cognitive functions and awareness Status: Acute Assessment and Plan: Etiology unclear but has had previous hospitalizations for this. Echo earlier this month showing no concerning findings. Brain CT this admission showing no acute findings. Head/Neck CTA also showing no acute findings. Consider seizures. EEG ordered. Neuro consulted. Consider dysrhythmias. Continue PT/OT. (2) Bilateral arm weakness: Code(s): R29.898 - Other symptoms and signs involving the musculoskeletal system Status: Acute Assessment and Plan: Bilateral arm weakness persistent today but tone better. CTA showing moderate to severe cervical spondylosis is noted. Brain CT showing no acute infarcts. Cervical spine CT 02/25/20 showing chronic mild vertebral body height loss at C4 and C5 and moderate cervical spondylosis. Etiology unclear. Thought might be related to Don's paralysis from unrecognized seizures. Continue PT/OT. Neurology consulted. (3) Hyperkalemia: Code(s): E87.5 - Hyperkalemia Status: Acute Assessment and Plan: Potassium 5.9 on admission. Not on medication to explain this. Potassium actually low and fadia replace due to concern for dysrhythmias. Mag also to be replaced. Continue to follow. (4) Acute renal injury: Code(s): N17.9 - Acute kidney failure, unspecified Status: Acute Assessment and Plan: Cr 1.1 on admission but normal now with IV fluids. UOP improving as well. Oliver catheter secured. Stop IV fluids (5) Acute respiratory failure: Code(s): J96.00 - Acute respiratory failure, unspecified whether with hypoxia or hypercapnia Status: Acute Assessment and Plan: Patient placed on mechanical ventilation on 03/17 and admistted to the ICU. Patient has been seen by the power plant supervisor and able to be extubated succesfully on 03/18. Patient is now a DNR. Etiology unclear but respiratory failure related to the unresponsive episodes. CXR clear on admission. No evidence of CO2 retention. Wean O2 as toelrated. (6) At risk for stress ulcer: Code(s): Z91.89 - Other specified personal risk factors, not elsewhere classified Status: Acute Assessment and Plan: The patient had some rust colored gastric secretions. Protonix 40 mg IV Q 12 ordered which we will continue. Hgb 12 on admission and 10.3 today. Continue to monitor. (7) Hypothyroidism: Code(s): E03.9 - Hypothyroidism, unspecified Status: Acute Assessment and Plan: On 02/26/20, TSH>100 and discharged on Synthroid 50mcg. Repeat TSH 80 on 03/10/20. Only been 3 weeks since starting current dose. Started on IV levothyroxine but will change to oral route. Suspect she will need higher dose at some point. Subjective Date/time seen: 03/19/20 12:38 Interval history: 84yo female with depression and hypothyroidism sent in after having an unresponsive episode at the [facility]. Patient was found unresponsive in her room at the [facility] living. No issues overnight. Worked with therpay but still not moving bilateral UE. She has feeling in her hands and arms but not able to move them. Able to move lower extremity. She states she slept well. She denies CP, SOB, abd pain, neck pain, n/v. Eating okay. Exam Narrative: Exam [place]: [place] [id number] 63 12 99% Gen - thin, frail female in NARD lying semi-recumbent in bed. HEENT - healing left forehead laceration with resolving bruising noted Neck - supple Chest - CTA bilaterally, nml RR CV - RRR S1/S2; Tele showing PVCs. Abd - Soft, ND, mild guarding, +BS - Oliver secured draining clear yellow urine Ext - No pedal edema Neuro - AOx2 (month, year but not president or location). improved tone in the BUE. 2+ bicep DTR bilaterally. nml sensation to light touch and pain in the UE. S
[2020-03-19] MEDS: POTASSIUM CHLORIDE 20 MEQ TABLET PO (14:43)
[2020-03-19] MEDS: amLODIPine BESYLATE 2.5 MG TABLET PO (14:44)
--- NOTE | 2020-03-19 14:51 | PC.NURSE ---
Patient leaving for MRI will be transferred to room 316 following test.
--- NOTE | 2020-03-19 15:34 | PC.NURSE ---
Gave report to Miranda on 3rd m/s. Transporter will take patient to room 316 following MRI.
--- NOTE | 2020-03-19 15:35 | WPDNEURCNPN ---
Assessment and Plan Assessment and plan (1) Bilateral arm weakness: Code(s): R29.898 - Other symptoms and signs involving the musculoskeletal system Status: Acute (2) Depression: Code(s): F32.9 - Major depressive disorder, single episode, unspecified Status: Acute (3) Hypothyroidism: Code(s): E03.9 - Hypothyroidism, unspecified Status: Acute (4) Recurrent falls: Code(s): R29.6 - Repeated falls Status: Acute Additional Plan to evaluate to her rather subacute weakness of both upper extremities along with brain MRI and MRI of the cervical spine is needed I will be happy to follow Consult date: 03/19/20 Time Seen: 15:00 HPI: Kayode Arroyo is a 84 year old female Who came to the hospital with multiple medical issues and after extubation she was noted to have significant upper extremity weakness totally sparing the lower extremities she denies any headache nausea vomiting chest pain or shortness breath overall she has improved apart from the fact that however extremities are not moving I have recommended MRI of the cervical spine along with the MRI of her brain Review of Systems Review of Systems: All systems reviewed & are unremarkable except as noted in HPI and below PMFSH Past Medical History Medical History Chronic anemia Depression Hypertension Hypothyroid Surgical History Surgical History History of appendectomy Family History Family History Mother Heart attack Father Throat cancer Social History Social History Social History: The patient lives in her own home in [place], but is currently doing rehab at [place] since early February 2020. She is originally from [place] outside of [place] and she moved to the [place] after she met a soldier in [place]. She has 1 daughter who lives in [place], it does not sound as though they keep in much contact. She has smoked for 62 years, typically 5 or 6 cigarettes a day. She denies alcohol and illicit substance abuse. Her around 1997. She designates her [id number] Linda Maldonado as her surrogate decision maker. Code status: DNR Smoking packs per day: 0.5 Smoking cigarettes per day: 10.0 Years smoked: 62 Smoking pack-years: 31.00 Smoking status: Current every day smoker Tobacco type: cigarettes Alcohol intake: former Substance use: never Gender identity (if verbalized by the patient): Female Sexual Orientation (if Verbalized by the Patient): Straight or Heterosexual Spiritual care concerns: No Meds Home Medications and Allergies Home Medications Medication Instructions Recorded Confirmed Type levothyroxine [Synthroid] 50 mcg PO DAILY@0630 30 Days #30 02/27/20 03/18/20 Rx tablet meclizine 12.5 mg PO TID PRN #20 tablet 02/27/20 03/18/20 Rx amlodipine 2.5 mg PO QAM #30 tablet 03/12/20 03/18/20 Rx Allergies Allergy/AdvReac Type Severity Reaction Status Date / Time No Known Allergies Allergy Verified 03/17/20 17:40 Vital Signs Vital Signs - 24 hr 03/18/20 16:00 03/18/20 17:10 03/18/20 17:15 Temperature 36.9 C Pulse Rate 79 68 68 Respiratory Rate 17 17 Blood Pressure 152/67 H Pulse Oximetry 100 100 100 03/18/20 18:00 03/18/20 18:33 03/18/20 20:00 Temperature 36.2 C L 36.9 C Pulse Rate 61 71 62 Respiratory Rate 15 14 Blood Pressure 172/60 H 155/60 H Pulse Oximetry 100 100 03/18/20 22:00 03/18/20 22:03 03/18/20 22:12 Temperature 36.8 C Pulse Rate 55 L 62 55 L Respiratory Rate 12 Blood Pressure 165/68 H Pulse Oximetry 100 03/18/20 22:30 03/19/20 00:00 03/19/20 02:00 Temperature 36.8 C 36.6 C Pulse Rate 74 75 51 L Respiratory Rate 16 16 12 Blood Pressure 134/52 L 133/45 L Pulse Oximetry 98 100 99 0
--- NOTE | 2020-03-19 16:31 | ADMGEN ---
This patient, Kayode Arroyo, was admitted to [facility] Surg Room 316-01. Patient/family oriented to hospital policies and general routines including ID bracelet, bed and alarms, visiting hours, pain management, procedures, bathroom and other care routines, personal items, smoking policy, room service/diet, and visiting hours. Valuables list has been completed. Information on how to activate the Rapid Response Team has been discussed. Patient/Family are encouraged to report perceived risks to care and to ask questions if they do not understand what they are told or what they should do.
[2020-03-20] VITALS (10 sets, daily range): BP systolic 134–155; BP diastolic 39–63; PULSE 51–73; RESP 16–18; TEMP 36.6–36.8; O2SAT 98–100
[2020-03-20] MEDS: LEVOTHYROXINE SODIUM 50 MCG TABLET PO (06:20)
[2020-03-20 06:39] LABS: Hematocrit 30.6 % (37.0-47.0); Hemoglobin 10.4 g/dL (12.0-15.0); Mean Corpuscular Hemoglobin 33.7 pg (26-34); Platelet Count Result 219 k/mm3 (150-375); Red Blood Count 3.09 M/mm3 (4.2-5.4); White Blood Count 9.2 K/mm3 (4.5-10.0)
[2020-03-20 07:00] LABS: Alanine Aminotransferase 11 U/L (4-35); Albumin Level 3.8 g/dL (3.5-5.1); Alkaline Phosphatase 121 U/L (38-126); Anion Gap 11.5 mmol/L (7-16); Aspartate Amino Transferase 75 U/L (14-36); Bilirubin,Total 0.8 mg/dL (0.2-1.3); Blood Urea Nitrogen 10 mg/dL (7-17); CRP 7.9 mg/dL (<1.0); Carbon Dioxide 26 mmol/L (22-30); Chloride 104 mmol/L (98-107); Creatine Kinase 324 U/L (30-135); Estimated CRCL calculation 37 ml/min; Estimated Glomerular Filt Rate > 60; Glucose 88 mg/dL (65-105); Magnesium 1.8 mg/dL (1.6-2.3); Potassium 3.5 mmol/L (3.4-5.0); Sodium 138 mmol/L (137-145)
[2020-03-20] MEDS: PANTOPRAZOLE SODIUM IV 40 MG VIAL IV PUSH ×2 (08:02→20:48)
[2020-03-20] MEDS: amLODIPine BESYLATE 2.5 MG TABLET PO (08:02)
[2020-03-20] MEDS: ENOXAPARIN 40 MG/0.4 ML SYRINGE SUB-Q (08:02)
[2020-03-20 10:25] LABS: Erythrocyte Sedimentation Rate 88 mm/hr (0-20)
--- NOTE | 2020-03-20 13:17 | PM.IMPN ---
Progress Note: A&P Assessment and Plan (1) Unresponsive episode: Code(s): R41.89 - Other symptoms and signs involving cognitive functions and awareness Status: Acute Assessment and Plan: Etiology unclear but has had previous hospitalizations for this. Echo earlier this month showing no concerning findings. Brain CT this admission showing no acute findings. Head/Neck CTA also showing no acute findings. Consider seizures. EEG ordered. Brain MRI showing widespread acute infarcts in the brain likely anoxic brain injury most likely causing her UE weakness. This may be from hypoxia when found down at the [facility]. She also has severe cervical spondylosis with abnormal signal in the spinal cord from C4-C5 through C6-C7, consistent with edema versus myelomalacia. Edema of the interspinous ligaments from C4-C5 through C6-C7, consistent with sprains also noted. Will start Dexamethasone to see if this improves her symptoms. Neurology following and appreciate their input. 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 Discussed with patietn and dtr who was in the room. The patietn is Aox3 (thought month was Mar). After a long discussion of the MRI findings and the need to have surgical evaluation to se if this could help improve her arm weakness, patient refuses transfer. She does not care about the weakness and does not want surgery. Dtr in the room listens to this and agrees with patient and also refuses transfer knowing that the arm paralysis will most liekly be permanent. Will continue the IV sterods. Contineu therapy. (2) Bilateral arm weakness: Code(s): R29.898 - Other symptoms and signs involving the musculoskeletal system Status: Acute Assessment and Plan: Bilateral arm weakness persistent but tone better. CTA showing moderate to severe cervical spondylosis is noted. Brain CT showing no acute infarcts. Cervical spine CT 02/25/20 showing chronic mild vertebral body height loss at C4 and C5 and moderate cervical spondylosis. Brain and cervical spine MRI as above. Continue PT/OT. Neurology following and appreciate their input. (3) Hyperkalemia: Code(s): E87.5 - Hyperkalemia Status: Acute Assessment and Plan: Potassium 5.9 on admission. Not on medication to explain this. Potassium actually became low and was replaced due to concern for dysrhythmias. Mag also was replaced. Continue to follow. (4) Acute renal injury: Code(s): N17.9 - Acute kidney failure, unspecified Status: Acute Assessment and Plan: Cr 1.1 on admission but normal now with IV fluids. Good UOP. (5) Acute respiratory failure: Code(s): J96.00 - Acute respiratory failure, unspecified whether with hypoxia or hypercapnia Status: Acute Assessment and Plan: Patient intubated on 03/17 and admitted to the ICU. Patient was seen by the back strip machine operator and able to be extubated successfully on 03/18. Patient is now a DNR. Etiology unclear but respiratory failure related to the unresponsive episodes. CXR clear on admission. No evidence of CO2 retention. Down to room air (6) At risk for stress ulcer: Code(s): Z91.89 - Other specified personal risk factors, not elsewhere classified Status: Acute Assessment and Plan: The patient had some rust colored gastric secretions. Protonix 40 mg IV Q 12 ordered which we will continue. Hgb 12 on admission but droped to 10 range and stable. Continue to monitor. (7) Hypothyroidism: Code(s): E03.9 - Hypothyroidism, unspecified Status: Acute Assessment and Plan: On 02/26/20, TSH>100 and discharged on Synthroid 50mcg. Repeat TSH 80 on 03/10/20. Only been 3 weeks since starting current dose. Started on IV levothyroxine but changed to oral route. Suspect she will need higher dose at some point.
--- NOTE | 2020-03-20 17:25 | WPDNEUROPN ---
Progress Note: A&P Assessment and Plan (1) Bilateral arm weakness: Code(s): R29.898 - Other symptoms and signs involving the musculoskeletal system Status: Acute (2) Cervical myelopathy: Code(s): G95.9 - Disease of spinal cord, unspecified Status: Acute (3) Acute encephalopathy: Code(s): G93.40 - Encephalopathy, unspecified Status: Acute (4) Anoxic brain damage: Code(s): G93.1 - Anoxic brain damage, not elsewhere classified Status: Acute (5) Hypothyroidism: Code(s): E03.9 - Hypothyroidism, unspecified Status: Acute (6) Renal insufficiency: Code(s): N28.9 - Disorder of kidney and ureter, unspecified Status: Acute (7) Acute respiratory failure: Code(s): J96.00 - Acute respiratory failure, unspecified whether with hypoxia or hypercapnia Status: Acute (8) Recurrent falls: Code(s): R29.6 - Repeated falls Status: Acute (9) Chronic anemia: Code(s): D64.9 - Anemia, unspecified Status: Acute (10) Unresponsive episode: Code(s): R41.89 - Other symptoms and signs involving cognitive functions and awareness Status: Acute (11) Depression: Code(s): F32.9 - Major depressive disorder, single episode, unspecified Status: Acute Additional Plan continue present medical Jennyfer she will require PT OT and gait training prior to discharge with limitation of the left lower extremity which will be nonweightbearing Review of Systems Review of Systems: All systems reviewed & are unremarkable except as noted in HPI and below Exam Const: General: comfortable and no acute distress HENMT: General nose exam: Normal nares present Mouth: Yes moist mucous membranes Eyes: General: appearance normal, both eyes and all related structures Neck: Neck: supple and no JVD Resp: Effort & Inspection: normal respiratory effort Auscultation: clear to auscultation bilaterally Cardio: Rate: regular rate Rhythm: regular rhythm GI: Auscultation: normal bowel sounds Neuro: Other: patient is awake alert well oriented little sleepy does not have any pain at all her upper extremities remained essentially flaccid to spastic and lower extremity she is able to move with brisk reflexes in the lower extremities and positive Babinski Extrem: General: normal to inspection Psych: Other: [id number] cognitive deficits Objective Data Vital Signs Vital Signs: Vital Signs - 24 hr 03/19/20 20:00 03/19/20 21:50 03/19/20 22:01 Temperature 36.3 C L Pulse Rate 56 L 69 73 Respiratory Rate 18 Blood Pressure 167/57 H Pulse Oximetry 95 100 03/20/20 00:00 03/20/20 04:00 03/20/20 06:00 Temperature 36.6 C Pulse Rate 51 L 67 59 L Respiratory Rate 18 Blood Pressure 155/53 H Pulse Oximetry 100 03/20/20 08:00 03/20/20 08:54 03/20/20 12:00 Temperature Pulse Rate 62 58 L Respiratory Rate Blood Pressure Pulse Oximetry 99 03/20/20 14:00 03/20/20 16:00 Temperature 36.8 C Pulse Rate 61 62 Respiratory Rate 18 Blood Pressure 134/39 L Pulse Oximetry 98 Intake/Output Intake/Output: Intake & Output 03/17/20 03/18/20 03/19/20 03/20/20 23:59 23:59 23:59 23:59 Intake Total 1099.8 2065.2 2024 165 Output Total 50 925 1800 500 Balance 1049.8 1140.2 224 -335 Meds/Results Medications: Active Medications Generic Name Dose Route Start Last Admin Trade Name Marquiseq PRN Reason Stop Dose Admin Amlodipine Besylate 2.5 mg 03/19/20 09:00 03/20/20 08:02 Norvasc PO 2.5 mg QAM MIREYA Administration Dexamethasone Sodium Phosphate 4 mg 03/20/20 18:00 Decadron 4 Mg/Ml Inj IV PUSH Q6HR COUNTS INCLUDE 234 BEDS AT THE [facility] Enoxaparin Sodium 40 mg 03/19/20 09:00 03/20/20 08:02 Lovenox SUB-Q 40 mg DAILY MIREYA Administration Levothyroxine Sodium 50 mcg 03/20/20 06:30 03/20/20 06:20 Synthroid PO 50 mcg DAILY@0630 COUNTS INCLUDE 234 BEDS AT THE [facility] Administration Morphine Sulfate 4 mg 03/17/20 21:50 Mor
[2020-03-20] MEDS: DEXAMETHASONE SOD PHOS INJ 4 MG/ML VIAL IV PUSH ×2 (17:43→23:24)
[2020-03-21] VITALS: PULSE 60
[2020-03-21 04:00] VITALS: PULSE 56
[2020-03-21] MEDS: DEXAMETHASONE SOD PHOS INJ 4 MG/ML VIAL IV PUSH ×2 (05:16→17:03)
[2020-03-21 06:00] VITALS: BP 119/71; PULSE 61; RESP 16; TEMP 36.7; O2SAT 98
[2020-03-21] MEDS: LEVOTHYROXINE SODIUM 50 MCG TABLET PO (06:03)
[2020-03-21 06:38] LABS: Hematocrit 30.7 % (37.0-47.0); Hemoglobin 10.7 g/dL (12.0-15.0); Mean Corpuscular HGB Conc 34.9 g/dl (32-36); Mean Corpuscular Hemoglobin 33.9 pg (26-34); Mean Corpuscular Volume 97.2 fl (80-100); Mean Platelet Volume 9.6 fl (7.4-10.4); Platelet Count Result 224 k/mm3 (150-375); Red Blood Count 3.16 M/mm3 (4.2-5.4); Red Cell Distribution Width 14.6 % (11.5-14.5); White Blood Count 7.9 K/mm3 (4.5-10.0)
[2020-03-21 07:08] LABS: Anion Gap 9.8 mmol/L (7-16); Blood Urea Nitrogen 16 mg/dL (7-17); Calcium 9.4 mg/dL (8.4-10.2); Carbon Dioxide 28 mmol/L (22-30); Chloride 101 mmol/L (98-107); Estimated CRCL calculation 34 ml/min; Estimated Glomerular Filt Rate > 60; Glucose 150 mg/dL (65-105); Potassium 3.8 mmol/L (3.4-5.0); Sodium 135 mmol/L (137-145)
[2020-03-21 09:19] VITALS: O2SAT 97
[2020-03-21] MEDS: PANTOPRAZOLE SODIUM IV 40 MG VIAL IV PUSH (09:49)
[2020-03-21] MEDS: ENOXAPARIN 40 MG/0.4 ML SYRINGE SUB-Q (09:49)
[2020-03-21] MEDS: amLODIPine BESYLATE 2.5 MG TABLET PO (09:49)
--- NOTE | 2020-03-21 10:10 | NEURO_ITS ---
TEST: ELECTROENCEPHALOGRAM DIAGNOSIS: ALTERED MENTAL STATUS PATIENT NUMBER: [id number] EEG NUMBER: [id number] RECORDING DATE: 03/21/20 CONDITION OF RECORDING: Drowsy and sleep EEG DESCRIPTION: The whole record consists of low to medium voltage 5-7hz theta activity and mixed with 3-4hz delta activity superimposed by low voltage beta activity. Bilateral symmetrical sleep activity is seen during sleep. Hyperventilation and photic stimulation were not done. Nonparoxysmal. Nonfocal. Nonlateralizing. IMPRESSION: Abnormal record due to the presence of bi-hemispheric theta and delta activity. These abnormalities could be consistent with the diagnosis of organic or metabolic encephalopathy or the post ictal state. Clinical correlation recommended. [facility]
[2020-03-21 12:00] VITALS: PULSE 85
[2020-03-21 14:00] VITALS: BP 147/55; PULSE 63; RESP 18; TEMP 36.8; O2SAT 97
--- NOTE | 2020-03-21 14:05 | PM.DS ---
DS: Admitting Diagnosis Admitting Diagnosis Admitting Diagnosis: Hyperkalemia DS: Discharge Diagnosis Discharge Diagnosis (1) Unresponsive episode: Code(s): R41.89 - Other symptoms and signs involving cognitive functions and awareness Status: Acute Assessment and Plan: Etiology unclear but has had previous hospitalizations for this. Echo earlier this month showing no concerning findings. Brain CT this admission showing no acute findings. Head/Neck CTA also showing no acute findings. 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 She also has severe cervical spondylosis with abnormal signal in the spinal cord from C4-C5 through C6-C7, consistent with edema versus myelomalacia. Edema of the interspinous ligaments from C4-C5 through C6-C7, consistent with sprains also noted. 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 Discussed with patient and dtr who was in the room on 03/20. The patient is Aox3 (thought month was Mar). After a long discussion of the MRI findings and the need to have surgical evaluation to see if this could help improve her arm weakness, patient refuses transfer. She does not care about the weakness and does not want surgery. Dtr in the room listens to this and agrees with patient and also refuses transfer knowing that the arm paralysis will most likely be permanent. Talked with armen again on 03/21 and she again refuses surgery. She does not want anyone 'to cut on me'. Discussed with dtr by phone as well. Dexamethasone started without benefit. Continue therapy. Neurology felt patient could be discharged back to [facility] (2) Bilateral arm weakness: Code(s): R29.898 - Other symptoms and signs involving the musculoskeletal system Status: Acute Assessment and Plan: Bilateral arm weakness persistent. CTA showing moderate to severe cervical spondylosis is noted. Brain CT showing no acute infarcts. Cervical spine CT 02/25/20 showing chronic mild vertebral body height loss at C4 and C5 and moderate cervical spondylosis. Brain and cervical spine MRI as above. Continue PT/OT. Neurology following and appreciate their input. Dexamethasone started but without benefits. (3) Hyperkalemia: Code(s): E87.5 - Hyperkalemia Status: Acute Assessment and Plan: Potassium 5.9 on admission. Not on medication to explain this. Potassium actually became low and was replaced due to concern for dysrhythmias. Mag also was replaced. Levels okay. (4) Acute renal injury: Code(s): N17.9 - Acute kidney failure, unspecified Status: Acute Assessment and Plan: Cr 1.1 on admission but normal now with IV fluids. Good UOP. (5) Acute respiratory failure: Code(s): J96.00 - Acute respiratory failure, unspecified whether with hypoxia or hypercapnia Status: Acute Assessment and Plan: Patient intubated on 03/17 and admitted to the ICU. Patient was seen by the procurement assistant and able to be extubated successfully on 03/18. Patient is now a DNR. Etiology unclear but respiratory failure related to the unresponsive episodes. CXR clear on admission and remained clear on repeat (03/20). No evidence of CO2 retention. Weaned to 1L (6) At risk for stress ulcer: Code(s): Z91.89 - Other specified personal risk factors, not elsewhere classified Status: Acute Assessment and Plan: The patient had some rust colored gastric secretions. Protonix 40 mg IV Q 12 ordered. Hgb 12 on admission but droped to 10 range and stable. (7) Hypothyroidism: Code(s): E03.9 - Hypothyroidism, unspecified Status: Acute Assessment and Plan: On 02/26/20, TSH>100 and discharged on Synthroid 50mcg. Repeat TSH 80 on 03/10/20. Only be
--- NOTE | 2020-03-21 17:23 | PCDIET ---
Nutrition Follow-Up Complete: Inadequate oral intake related to oral intubation as evidenced by NPO status. Patient to meet estimated nutritional needs. Goal: Progressing towards goal. Continue goal. Pt current nutrition is Regular Nutrition recommendation: Agree Last recorded weight is 47.7 kg (wt up from 41.5kg on assessment) Bowel Motility: Labs Reviewed:C reactive 7.9, Glucose 150, Na 135 Meds Noted:Dexamethasone, Synthroid Additional Notes: Pt planning for d/c today. Diet advanced and appetite improving. One intake of 100%, three at 10%. Wt up. We will continue to monitor progress every three days if pt remains in patient. Pt may benefit from supplements if intake does not stay adequate. Follow up in 3 days.
--- NOTE | 2020-03-21 19:39 | PC.NURSE ---
Called [facility] several times and was on hold. Felicitaliliana was able to speak to someone. They said since this patient was returinging to the facility EMS could fill the nurse in when EMS arrived. Person on the phone said all the nurses were in dining room passing medications and couldnt take report.At the end of my shift I was made aware that the patients family was going to come and take pt to [facility] by private vehicle. I then socorro attempted to call and give report and recived no answer. THe night nurse Rickie is going to attempt to call again.
== END 2020-03-21 20:15 | DRG 208 ==
LOC: ANHED 21:57 → ANHICU 03-18 02:01 → ANH3MEDSUR 03-19 15:07 → ANHICU 03-24 09:25
PROVIDERS: Emergency Medicine; Internal Medicine Critical Care Medicine; Admitting Provider Internal Medicine; Emergency Provider Emergency Medicine; Visit Provider Internal Medicine
DX: J96.00 Acute respiratory failure, unspecified whether with hypoxia or hypercapnia (principal); N17.9 Acute kidney failure, unspecified; G93.40 Encephalopathy, unspecified; G93.1 Anoxic brain damage, not elsewhere classified; E87.5 Hyperkalemia; E03.9 Hypothyroidism, unspecified; M48.02 Spinal stenosis, cervical region; F32.9 Major depressive disorder, single episode, unspecified; D64.9 Anemia, unspecified
CPT/HCPCS: 31500; 36415; 36600; 70450; 70496; 70498; 70553; 71045; 72156; 80048; 80053; 82375; 82550; 82805; 82948; 83050; 83735; 84100; 84484; 85025; 85027; 85610; 85652; 85730; 86140; 87040; 87086; 92610; 93005; 95816; 96365; 96366; 96375; 97110; 97162; 97166; 97530; 99291; A9270; A9577; C9113; J0696; J1100; J1650; J2704; J3475; J7030; Q9967